=== PATIENT | male | born 1965 | race Caucasian/White ===

== ENCOUNTER 2020-11-23 12:20 | Inpatient (IN) | payer OTHER ==
[~2020-11-23] VITALS: Ht 172.7 cm; Wt 73.9 kg
[2020-11-23] MEDS ORDERED: IV NS 0.9% 1,000 ML BAG IV ONE (13:00)
[2020-11-23 13:25] LABS: BASOPHILS % (AUTO) 1.3 % (0.0-2.0); EOSINOPHILS % (AUTO) 0.3 % (0.0-6.0); HEMATOCRIT 22 % (39-51); HEMOGLOBIN 7.3 g/dL (13.5-17.5); LYMPHOCYTES # (AUTO) 0.2 K/uL (0.8-4.8); LYMPHOCYTES % (AUTO) 31.1 % (20.0-44.0); MEAN CORPUSCULAR HGB CONC 33 g/dl (31.0-36.0); MEAN CORPUSCULAR VOLUME 77 fL (80-96); MONOCYTES % (AUTO) 1.3 % (2.0-12.0); NEUTROPHILS # (AUTO) 0.4 K/uL (1.8-8.9); RED BLOOD CELL COUNT(AUTO) 2.86 MIL/uL (4.5-6.0)
[2020-11-23 13:28] LABS: WHITE BLOOD COUNT (AUTO) 0.6 K/uL (4.3-11.0)
[2020-11-23 13:29] LABS: ALANINE AMINOTRANSFERASE 30 U/L (12-78); ALBUMIN 1.5 g/dL (3.4-5.0); ALKALINE PHOSPHATASE 121 U/L (46-116); ASPARTATE AMINOTRANSFERASE 77 U/L (15-37); BILIRUBIN,DIRECT 2.8 mg/dL (0.0-0.2); CALCIUM, SERUM 7.4 mg/dL (8.5-10.1); CARBON DIOXIDE 23 mmol/L (21-32); CHLORIDE 97 mmol/L (98-107); CREATININE 3.5 mg/dL (0.6-1.3); PLATELET COUNT (AUTO) 23 K/uL (150-450); POTASSIUM 4.3 mmol/L (3.5-5.1); SODIUM SERUM 141 mmol/L (136-145); TOTAL PROTEIN, SERUM 6.5 g/dL (6.4-8.2)
[2020-11-23 13:30] LABS: GLUCOSE 543 mg/dL (74-106)
[2020-11-23 13:31] LABS: UREA NITROGEN, BLOOD 84 mg/dL (7-18)
--- NOTE | 2020-11-23 14:03 | NUR ---
URINE COLLECTED AND SENT TO LAB
[2020-11-23 14:07] LABS: BILIRUBIN,URINE SMALL (NEGATIVE); COLOR,URINE YELLOW (YELLOW); LEUKOCYTE ESTERASE ,URINE Negative (NEGATIVE); NITRITE, URINE Negative (NEGATIVE); PH,URINE 5.5 (5.0-8.0); PROTEIN,URINE 100 mg/dl (NEGATIVE); UGLUCOSE Negative (NEGATIVE)
[2020-11-23 14:09] LABS: BACTERIA,URINE Few /HPF (None Seen); SQUAMOUS EPITHELIAL CELL,UR Few /HPF (None Seen)
[2020-11-23] MEDS ORDERED: CEFTRIAXONE 1GM BAG (ER ONLY) 1 GM/50 ML PIGGYBACK IV ONE (14:30)
[2020-11-23] MEDS ORDERED: VANCOMYCIN HCL 1.25 GM in IV D5W 260 ML IV ONE (14:30)
[2020-11-23] MEDS ORDERED: INSULIN REGULAR, HUMAN 100 UNIT/ML 10 ML VIAL ONE (14:41)
[2020-11-23] MEDS ORDERED: INSULIN REGULAR, HUMAN 100 UNIT/ML 10 ML VIAL IV ONE (15:00)
[2020-11-23 15:22] LABS: LYMPHOCYTES % (MANUAL) 28 % (16-48); MONOCYTES % (MANUAL) 8 % (0-11.0); NEUTROPHILS % (MANUAL) 64 (42-76)
[2020-11-23] MEDS ORDERED: CEFTRIAXONE 1 G in IV D5W 50 ML IV ONE (15:30)
--- NOTE | 2020-11-23 15:34 | NUR ---
MOVE SHEET SUBMITTED AND CALLED FOR TELE BED.
--- NOTE | 2020-11-23 16:28 | NUR ---
SAVANNAH,SISTER CALLED FOR UPDATE,CALL TX TO ADMITTING TO UPDATE CONTACT INFO
--- NOTE | 2020-11-23 17:02 | NUR ---
SEEN BY DR TAVERAS,WANTS ANOTHE NS 1L GIVEN, DR AUGUSTIN INFORMED TO PUT THE ORDER
[2020-11-23] MEDS ORDERED: ZOLPIDEM TARTRATE 5 MG TABLET PO PRN (17:30)
[2020-11-23] MEDS ORDERED: MEROPENEM 500 MG in IV NS 0.9% 50 ML IV SCH (17:30)
[2020-11-23] MEDS ORDERED: MAG HYDROX/AL HYDROX/SIMETH 30 ML UDC PO PRN (17:30)
[2020-11-23] MEDS ORDERED: ACETAMINOPHEN 325 MG TABLET PO PRN (17:30)
[2020-11-23] MEDS ORDERED: IV NS 0.9% 500 ML BAG IV ONE (17:30)
[2020-11-23] MEDS ORDERED: Z GUARD REMEDY 2 OZ OINT TP PRN (17:30)
[2020-11-23] MEDS ORDERED: ONDANSETRON HCL/PF 4 MG/2 ML VIAL IVP PRN (17:30)
[2020-11-23] MEDS ORDERED: MAGNESIUM HYDROXIDE 30 ML UDC PO PRN (17:30)
--- NOTE | 2020-11-23 18:04 | NUR ---
COVID SWAB DONE AND SENT
[2020-11-23] MEDS ORDERED: DEXTROSE 50%-WATER 50 ML DISP.SYRIN IV PRN (19:30)
[2020-11-23] MEDS: IV NS 0.9% 1,000 ML IV PRN (20:05)
--- NOTE | 2020-11-23 20:06 | NUR ---
SPOKE TO DAUGHTER DUSTY INFORMED ONLY PEOPLE TO NOTIFY ARE DUSTY AND AUSTIN. UPDATED NUMBER FOR DUSTY
--- NOTE | 2020-11-23 20:10 | NUR ---
FIORELLA BED: 103
--- NOTE | 2020-11-23 22:15 | NUR ---
report given to KATJA Lewis for continuation of care. no belongings, pt transferred per acls protocol.
[2020-11-23 22:40] VITALS: BP 65/45
--- NOTE | 2020-11-23 22:40 | NUR ---
TELE-TD/DIESEL CRANE OPERATOR SHIRLENE [facility] ACNP NOTIFIED OF PT BP 65/45 NEW ORDERS RECIEVED AND CARRIED OUT. WILL CONTINUE TO MONITOR THE PT CLOESLY.
[2020-11-23 23:00] VITALS: BP 73/49
[2020-11-23] MEDS ORDERED: ACETAMINOPHEN 650 MG/SUPP.RECT RC PRN (23:00)
--- NOTE | 2020-11-23 23:12 | NUR ---
TELE-TD/CUSTOMER LEADER VELASQUEZ CATH PLACED VIA STERIAL PROCEDURE SCANT DARK BROWN URINE RETURNED. PT TOLERATED WELL WILL CONTINUE TO MONITOR.
[2020-11-23] MEDS ORDERED: IV NS 0.9% 500 ML IV STA (23:26)
[2020-11-23 23:37] VITALS: BP 62/45
--- NOTE | 2020-11-23 23:37 | NUR ---
TELE-TD/SENIOR SITE MANAGER BP 62/45 BOLUS CURRENTLY INFUSING WILL CONTINUE TO MONITOR CLOESLY.
--- NOTE | 2020-11-23 23:45 | NUR ---
2345 Inserted new IV access on LFA g20 with good blood return.
[2020-11-23] MEDS: BLOOD SUGAR DIAGNOSTIC 1 EACH STRIP IN SCH (23:49)
[2020-11-23] MEDS: INSULIN REGULAR, HUMAN 100 UNIT/ML 3 ML VIAL SQ PRN (23:54)
[2020-11-23] MEDS ORDERED: MEROPENEM 1 G VIAL IV ONE (23:56)
[2020-11-23] MEDS: MEROPENEM 1 G in IV NS 0.9% 100 ML IV SCH (23:57)
[2020-11-24] VITALS (84 sets, daily range): BP systolic 64–161; BP diastolic 40–106
--- NOTE | 2020-11-24 00:01 | NUR ---
TELE-TD/B2B SALES CONSULTANT BOLUS COMPLETE BP 67/40 SHIRLENE DURAN ACNP ORDERED TRANSFER TO ICU.
--- NOTE | 2020-11-24 00:10 | NUR ---
0010 report given to ICU charge nurse Monika for transfer of care with questions answered.
[2020-11-24] MEDS ORDERED: NOREPINEPHRINE 8MG/250ML RTU 250 ML IV ONE ×2 (00:19→21:19)
--- NOTE | 2020-11-24 00:20 | NUR ---
0020 transferred to ICU on ACLS protocol.
--- NOTE | 2020-11-24 00:21 | NUR ---
RN/ICU-RECEIVED PT. FROM TD BY BED PER ACLS PROTOCOL, ACCOMPANIED BY STAFF, PT. AROUSABLE, ORIENTED TO SELF, FOLLOWS SIMPLE COMMANDS, W/ GENERALIZED WEAKNESS. EKG ST W/ HR-121/MIN. BP-64/43. WILL START LEVOPHED DRIP TO KEEP SBP>80. BREATHING IS FAST,29/MIN. NOT IN ANY DISTRESS W/ O2 SUPPORT OF 6LSM, SATS.-97%. FEBRILE T-101.8/F CONTINUOUS COOLING MEASURES DONE.PT. IS A FULL CODE. ON CONTACT /[place] ISOLATION FOR COVID, PCR RESULT PENDING.
--- NOTE | 2020-11-24 00:25 | NUR ---
RN/ICU-PT. PT. RESTLESS AT TIMES ,THRASHING, ATTEMPTS TO PULL O2 SUPPORT, WHEN OFF RESTRAINTS, REMINDER GIVEN, BUT TO NO AVAIL, W/ DUSTIN. SOFT WRIST RESTRAINTS ON PER PROTOCOL.
[2020-11-24] MEDS: NOREPINEPHRINE 8 MG in IV NS 0.9% 242 ML IV PRN ×4 (00:31→21:32)
--- NOTE | 2020-11-24 02:17 | NUR ---
RN/ICU- BP-105/73, HR-135, LATEST TEMPT 100.9/F, WILL CONTINUE TO TITRATE LEVOPHED TO KEEP SBP>90, LATEST BP PARAMETERS ORDERED BY Yeison FINNEY.
[2020-11-24 05:01] LABS: BASOPHILS % (AUTO) 0.3 % (0.0-2.0); EOSINOPHILS % (AUTO) 0.8 % (0.0-6.0); LYMPHOCYTES # (AUTO) 0.2 K/uL (0.8-4.8); LYMPHOCYTES % (AUTO) 23.3 % (20.0-44.0); MEAN CORPUSCULAR HGB CONC 34 g/dl (31.0-36.0); MEAN CORPUSCULAR VOLUME 76 fL (80-96); MONOCYTES % (AUTO) 1.2 % (2.0-12.0); NEUTROPHILS # (AUTO) 0.6 K/uL (1.8-8.9); NEUTROPHILS % (AUTO) 74.4 % (43.0-81.0); RED BLOOD CELL COUNT(AUTO) 2.52 MIL/uL (4.5-6.0)
[2020-11-24 05:14] LABS: THYROID STIMULATING HORMONE 0.564 uIU/mL (0.358-3.74)
[2020-11-24 05:16] LABS: CALCIUM, SERUM 6.4 mg/dL (8.5-10.1); CREATININE 4.9 mg/dL (0.6-1.3); MAGNESIUM 2.8 mg/dL (1.8-2.4); POTASSIUM 4.5 mmol/L (3.5-5.1)
[2020-11-24] MEDS: BLOOD SUGAR DIAGNOSTIC 1 EACH STRIP IN SCH ×4 (05:48→23:12)
[2020-11-24] MEDS: INSULIN REGULAR, HUMAN 100 UNIT/ML 3 ML VIAL SQ PRN ×4 (05:49→23:12)
[2020-11-24 05:56] LABS: PHOSPHORUS 10.2 mg/dL (2.5-4.9)
[2020-11-24 06:12] LABS: HEMATOCRIT 19 % (39-51); HEMOGLOBIN 6.5 g/dL (13.5-17.5); PLATELET COUNT (AUTO) 13 K/uL (150-450); WHITE BLOOD COUNT (AUTO) 0.8 K/uL (4.3-11.0)
[2020-11-24] MEDS ORDERED: PANTOPRAZOLE 40 MG TABLET.DR PO SCH (07:30)
--- NOTE | 2020-11-24 07:30 | NUR ---
ICU/RN PT IS ON SIMPLE FACE MASK,SAT O2-99%.AWAKE ,CONFUSED AND VERY WEAK .ON LEVOPHED DRIP.NPO.F/C IN PLACE DRAINING WITH MINIMAL AMOUNT OF DARK PRANAV URINE.AFEBRILE,NO PAIN REPORTED AT THIS TIME.FROM HOME,POST FALL,BRUISES ALL OVER THE BODY NOTED.LABS REVIEW. NOTIFIED.1 UNIT PRBC ORDERED.FAMILY NOTIFIED.CONSENT SIGH.REPOSITION FOR COMFORT .
[2020-11-24] MEDS: MEROPENEM 1 G in IV NS 0.9% 100 ML IV SCH (09:31)
[2020-11-24] MEDS: PANTOPRAZOLE 40 MG VIAL IV SCH (09:32)
--- NOTE | 2020-11-24 10:40 | NUR ---
ICU/RN. RIGHT FEMORAL HD CATHETER INSERTED BY DANIEL BLUM ORDERED.PT TOLERATED PROCEDURE WELL NO S/S OF BLEEDING NOTED.
[2020-11-24] MEDS ORDERED: ACETAMINOPHEN 325 MG TABLET PO ONE (11:30)
[2020-11-24] MEDS ORDERED: diphenhydrAMINE HCL 50 MG/ML VIAL IV ONE (11:30)
[2020-11-24 12:07] LABS: IRON, SERUM 34 ug/dl (50-175); TOTAL IRON BINDING CAPACITY 86 ug/dl (250-450)
[2020-11-24] MEDS ORDERED: CEFEPIME 1 GM VIAL IM SCH (12:30)
[2020-11-24 12:35] LABS: D-DIMER 15.09 mg/L(FEU (0.17-0.50)
[2020-11-24 13:12] LABS: FERRITIN 4803 ng/mL (8-388)
[2020-11-24 13:21] LABS: BAND % (MANUAL) 12 % (0.0-5.0); LYMPHOCYTES % (MANUAL) 24 % (16-48); MONOCYTES % (MANUAL) 2 % (0-11.0); NEUTROPHILS % (MANUAL) 62 (42-76)
[2020-11-24 13:22] LABS: PROSTATE SPECIFIC ANTIGEN SCR 2.86 ng/mL (0.00-4.00)
--- NOTE | 2020-11-24 14:10 | NUR ---
PATIENT RECEIVING DIALYSIS, TECH TO RETURN FOR LIVER ULTRASOUND
[2020-11-24] MEDS: TBO-FILGRASTIM 480 MCG/0.8 ML ML SQ SCH (14:55)
[2020-11-24] MEDS: VANCOMYCIN 0.75 GM in IV D5W 250 ML IV SCH (14:56)
--- NOTE | 2020-11-24 17:10 | NUR ---
ICU/RN FIRST HD DONE ORDERED .NO FLUIDS REMOVED.1 UNIT PRBC GIVEN WITH HD ORDERED.NO S/S OF TRANSFUSION REACTION NOTED.DUE MEDS ARE GIVEN ORDERED.CONTINUE MONITORING. LEFT UPPER ARM PICC LINE INSERTED ORDERED.
--- NOTE | 2020-11-24 19:29 | NUR ---
RN NOTES CALLED LAB, SPOKE WITH MAT TO F/U REGARDING THE PLATELET, WAS ADVISED STILL WAITING FROM [place] FOR THE BAG. WILL PROVIDE UPDATE ONCE IT AVAILABLE FOR CAR DUMPER. MASON LINER MADE AWARE.
[2020-11-24] MEDS: IV NS 0.9% 1,000 ML IV PRN (19:30)
--- NOTE | 2020-11-24 19:30 | NUR ---
RN OPENING NOTES: RECEIVED PT A/OX2-3 IN BED RESTING COMFORTABLY. PATIENT IN NO S/SX OF ACUTE DISTRESS AT THIS TIME. NO SOB NOTED. PATIENT'S BREATHING IS EVEN AND UNLABORED. PATIENT IS ON 6L OF OXYGEN VIA NC; TOLERATING WELL. PATIENT ON TELE MONITORING READING SINUS TACHY HR IS @103 BPM AT THE TIME OF RECEIVED. PATIENT CURRENTLY ON NPO EXCEPT MEDS. NOTED IV SITE ON THE FOLLOWING: R AC#20 , L AC#20 AND L UA PICC LINE ; ALL PATENT, INTACT AND FLUSHING WELL; NO S/S OF INFECTION OR INFILTRATION. PT ALSO HAS R FEMORAL HD CATH WITH PICC TAIL SECURED AND INTACT NO SIGNS OF INFECTION. IV FLUIDS RUNNING ORDERED. HAS RUNNING LEVO RECEIVED @0.1MCG/KG/MIN MONITORED AND TITRATED PER PROTOCOL. VELASQUEZ CATH IN PLACE, NO URINE OUTPUT NOTED AT THE TIME OF RECEIVED. SAFETY MEASURES HAVE BEEN PROVIDED AND IMPLEMENTED. PATIENT BED ALARM IS ON. HEAD OF BED ELEVATED. BED IS LOCKED, IN LOWEST POSITION AND SIDE RAILS UP. CALL LIGHT WITHIN REACH OF THE PATIENT. APPLICABLE ISOLATION PRECAUTIONS IN PLACE. WILL CONTINUE TO MONITOR AND REASSESS FOR ANY CHANGES AND WILL CARRY OUT ANY ONGOING AND ACTIVE MD ORDER. Addendum: 11/25/20 at 0024 by BRAYDEN DE LEON RN CORRECTION PT IS ON 3L OF 02 VIA ND
[2020-11-24] MEDS: MEROPENEM 500 MG in IV NS 0.9% 50 ML IV SCH (20:42)
--- NOTE | 2020-11-24 20:45 | NUR ---
RN NOTES STARTED 1 BAG OF PLATELET ORDERED. INITIAL VITAL SIGNS TAKEN AND NOTED TO BE WNL. INFUSED PER PROTOCOL. WILL CONTINUE TO MONITOR AND ASSESS FOR ANY TRANSFUSION REACTION AND ADDRESS ACCORDINGLY. CARGO TANK MECHANIC WELL AWARE.
--- NOTE | 2020-11-24 21:20 | NUR ---
RN NOTES RECEIVED CALL FROM FAMILY; MARIO [phone]) PROVIDED GENERAL UPDATES REGARDING THE PATIENT. SHE ALSO REQUESTED TO KEEP SIGNIFICANT UPDATES TO PT'S DAUGHTER DUSTY MARIE ([phone]) RN ACKNOWLEDGED.
--- NOTE | 2020-11-24 21:46 | NUR ---
RN NOTES ENDED PLATELE TRANSFUSION @2145, VITAL SIGNS REMAINED WNL, NO TRANSFUSION REACTION NOTED. WILL CONTINUE TO MONITOR AND ASSESS FOR ANY RANSFUSION REACTION POST PROCEDURE. COMPUTER NETWORKER MADE AWARE.
[2020-11-25] VITALS (102 sets, daily range): BP systolic 66–146; BP diastolic 28–85
[2020-11-25] MEDS: IV NS 0.9% 1,000 ML IV PRN (05:00)
[2020-11-25] MEDS: INSULIN REGULAR, HUMAN 100 UNIT/ML 3 ML VIAL SQ PRN ×4 (05:11→23:21)
[2020-11-25] MEDS: BLOOD SUGAR DIAGNOSTIC 1 EACH STRIP IN SCH ×4 (05:11→23:20)
[2020-11-25 05:20] LABS: LYMPHOCYTES # (AUTO) 0.2 K/uL (0.8-4.8); LYMPHOCYTES % (AUTO) 24.1 % (20.0-44.0); MEAN CORPUSCULAR HGB CONC 34 g/dl (31.0-36.0); MEAN CORPUSCULAR VOLUME 78 fL (80-96); MONOCYTES # (AUTO) 0.3 K/uL (0.1-1.30); MONOCYTES % (AUTO) 41.4 % (2.0-12.0); NEUTROPHILS # (AUTO) 0.2 K/uL (1.8-8.9); NEUTROPHILS % (AUTO) 34.5 % (43.0-81.0)
[2020-11-25 05:46] LABS: BILIRUBIN,TOTAL 2.9 mg/dL (0.2-1.0); PHOSPHORUS 7.3 mg/dL (2.5-4.9); POTASSIUM 3.5 mmol/L (3.5-5.1); TOTAL PROTEIN, SERUM 4.6 g/dL (6.4-8.2)
[2020-11-25 06:19] LABS: HEMATOCRIT 20 % (39-51); HEMOGLOBIN 6.9 g/dL (13.5-17.5); WHITE BLOOD COUNT (AUTO) 0.7 K/uL (4.3-11.0)
[2020-11-25 06:20] LABS: PLATELET COUNT (AUTO) 14 K/uL (150-450)
--- NOTE | 2020-11-25 06:20 | NUR ---
RN NOTES CRITICAL LAB ENDORSED BY SHANNON FROM LAB, WBC: 0.7 , HGB: 6.9 & PLATELET: 14. CALCIUM 4.5 AND ALBUMIN 1) NOTIFIED SHARMAINE NUNEZ (SHIRLENE,RAILWAY SIGNALLING ENGINEER) REGARDING CRITICAL LAB ( WBC: 0.7 , HGB: 6.9 & PLATELET: 14. CALCIUM 4.5 AND ALBUMIN 1). ORDER SECURED FOR 1 PRBC ONLY PT WILL HAVE HD TODAY. NUCLEAR EQUIPMENT SALES ENGINEER MADE AWARE.
--- NOTE | 2020-11-25 06:56 | NUR ---
RN CLOSING NOTE: PATIENT REMAINS IN ROOM IN NO SIGNS OF RESPIRATORY DISTRESS, PATIENT STILL ON 3L OF 02 VIA NC ;TOLERATING WELL SATURATING @ >95% SP02. SAFETY MEASURES IMPLEMENTED, BED IN LOWEST POSITION, LOCKED, SIDE RAILS UP, CALL LIGHT WITHIN REACH. ALL NEEDS AND ORDERS ADDRESSED DURING THE SHIFT. IV ACCESS MAINTAINED INTACT, SECURED AND FLUSHING WELL. ALL DUE MEDS GIVEN ORDERED & SCHEDULED ; PATIENT TOLERATED WELL. STILL WITH ONGOING DRIP OF LEVO @0.1MCG/KG/MIN ; MONITORED AND TITRATED PER PROTOCOL. PATIENT KEPT CLEAN AND COMFORTABLE WITHIN THE SHIFT. PATIENT ENDORSED TO INCOMING SHIFT RN WITH STABLE VITAL SIGN AND FOR CONTINUITY OF CARE.
[2020-11-25 07:06] LABS: IMMUNOGLOBULIN A, SERUM 587 mg/dL (90-386); IMMUNOGLOBULIN G, SERUM 871 mg/dL (603-1613); IMMUNOGLOBULIN M, SERUM 23 mg/dL (20-172)
--- NOTE | 2020-11-25 07:20 | NUR ---
ICU/RN PT IS ON 3L N/C SAT O2-98-99%.AFEBRILE.ON LEVOPHED DRIP.LEFT UPPER ARM PICC LINE .PT IS AWAKE,ALERT.VERY WEAK .NPO.IV INFUSING ORDERED.F/C IN PLACE NO URINE OUTPUT. RIGHT FEMORAL HD CATH .GENERALIZED EDEMA PRESENT .AFEBRILE NO PAIN REPORTED AT THIS TIME .LABS REVIEW. NOTIFIED.1 UNIT PRBC ORDERED.
[2020-11-25 07:37] LABS: LYMPHOCYTES % (MANUAL) 28 % (16-48); MONOCYTES % (MANUAL) 1 % (0-11.0); NEUTROPHILS % (MANUAL) 71 (42-76)
[2020-11-25] MEDS: PANTOPRAZOLE 40 MG VIAL IV SCH (08:04)
[2020-11-25] MEDS: MEROPENEM 500 MG in IV NS 0.9% 50 ML IV SCH ×2 (08:05→21:02)
[2020-11-25 08:07] LABS: *ANA ANTI-CENTROMERE B AB <0.2 AI (0.0-0.9); *ANA ANTI-DNA(DS) AB, QN <1 IU/mL (0-9); *ANA ANTI-JO-1 <0.2 AI (0.0-0.9); *ANA ANTICHROMATIN ANTIBODY <0.2 AI (0.0-0.9); *ANA RNP ANTIBODIES <0.2 AI (0.0-0.9); *ANA SJOGREN'S ANTI-SS-A <0.2 AI (0.0-0.9); *ANA SJOGREN'S ANTI-SS-B <0.2 AI (0.0-0.9); *ANAANTI-SCLERODERMA-70 AB <0.2 AI (0.0-0.9); *ANASMITH AB <0.2 AI (0.0-0.9)
--- NOTE | 2020-11-25 10:24 | NUR ---
ICU/RN H/H -6.9/20.1 UNIT PRBC GIVEN WITH HD ORDERED.PT TOLERATED WELL NO S/S OF REACTIONS NOTED.
[2020-11-25] MEDS: NOREPINEPHRINE 8 MG in IV NS 0.9% 242 ML IV PRN (11:31)
[2020-11-25] MEDS: VANCOMYCIN 0.75 GM in IV D5W 250 ML IV SCH (12:48)
[2020-11-25] MEDS ORDERED: PHYTONADIONE INJ 10 MG/1 ML AMPUL SQ ONE (13:00)
[2020-11-25 14:31] LABS: D-DIMER 19.07 mg/L(FEU (0.17-0.50)
[2020-11-25] MEDS ORDERED: CT SWABBABLE VALVE TRANS SET 1 EA INFUS.SET MC ONE (14:58)
[2020-11-25] MEDS ORDERED: IOHEXOL-300 100 ML VIAL IV ONE (14:58)
[2020-11-25] MEDS ORDERED: IV NS 0.9% 250 ML IV ONE (14:58)
[2020-11-25] MEDS: TBO-FILGRASTIM 480 MCG/0.8 ML ML SQ SCH (15:33)
[2020-11-25] MEDS: HYDROCODONE/APAP 5/325MG TABLET PO PRN (17:53)
--- NOTE | 2020-11-25 18:00 | NUR ---
ICU/RN PM CARE PROVIDED.PT EATS 25%,FROM HIS MEAL TRAY.BS-34O.C/O OF BACK PAIN ,NORCO 1 TAB PO GIVEN.CONTINUE MONITORING.
--- NOTE | 2020-11-25 19:30 | NUR ---
RN OPENING NOTES: RECEIVED PT A/OX2-3 IN BED IN NO S/SX OF ACUTE DISTRESS AT THIS TIME. NO SOB NOTED. PATIENT'S BREATHING IS EVEN AND UNLABORED. PATIENT IS ON 2L OF OXYGEN VIA NC; TOLERATING WELL; 02 SAT IS AT 96%. PATIENT ON TELE MONITORING READING SINUS TACHY AT THE TIME OF RECEIVED. PATIENT CURRENTLY ON RENAL DIABETIC DIET. NOTED IV SITE ON THE FOLLOWING: R AC#20 , L AC#20 AND L UA PICC LINE ; ALL PATENT, INTACT AND FLUSHING WELL; NO S/S OF INFECTION OR INFILTRATION. PT ALSO HAS R FEMORAL HD CATH WITH PICC TAIL SECURED AND INTACT NO SIGNS OF INFECTION. IV FLUIDS RUNNING ORDERED. HAS RUNNING LEVO RECEIVED @0.04 MCG/KG/MIN WILL MONITOR AND TITRATE PER PROTOCOL. VELASQUEZ CATH IN PLACE, NO URINE OUTPUT NOTED AT THE TIME OF RECEIVED. SAFETY MEASURES HAVE BEEN PROVIDED AND IMPLEMENTED. PATIENT BED ALARM IS ON. HEAD OF BED ELEVATED. BED IS LOCKED, IN LOWEST POSITION AND SIDE RAILS UP. CALL LIGHT WITHIN REACH OF THE PATIENT. APPLICABLE ISOLATION PRECAUTIONS IN PLACE. WILL CONTINUE TO MONITOR AND REASSESS FOR ANY CHANGES AND WILL CARRY OUT ANY ONGOING AND ACTIVE MD ORDER.
[2020-11-26] VITALS (95 sets, daily range): BP systolic 76–148; BP diastolic 38–126
[2020-11-26] MEDS: IV NS 0.9% 1,000 ML IV PRN ×2 (00:40→14:38)
--- NOTE | 2020-11-26 04:00 | NUR ---
RN NOTES NO NOTED CHANGES IN PATIENT CONDITION AT THIS TIME; PATIENT VITALS STABLE, NO SIGNS OF ACUTE RESPIRATORY DISTRESS. AM PATIENT CARE RENDERED. FOOD SAFETY TECHNICIAN MADE AWARE. WILL CONTINUE TO MONITOR AND REASSESS FOR ANY CHANGES THROUGHOUT THE SHIFT.
[2020-11-26] MEDS: INSULIN REGULAR, HUMAN 100 UNIT/ML 3 ML VIAL SQ PRN ×4 (05:34→23:36)
[2020-11-26] MEDS: BLOOD SUGAR DIAGNOSTIC 1 EACH STRIP IN SCH ×4 (05:34→23:35)
[2020-11-26 06:10] LABS: EOSINOPHILS % (AUTO) 0.6 % (0.0-6.0); HEMATOCRIT 22 % (39-51); HEMOGLOBIN 7.5 g/dL (13.5-17.5); LYMPHOCYTES # (AUTO) 0.2 K/uL (0.8-4.8); LYMPHOCYTES % (AUTO) 21.4 % (20.0-44.0); MEAN CORPUSCULAR HGB CONC 35 g/dl (31.0-36.0); MEAN CORPUSCULAR VOLUME 79 fL (80-96); MONOCYTES # (AUTO) 0.4 K/uL (0.1-1.30); MONOCYTES % (AUTO) 40.9 % (2.0-12.0); NEUTROPHILS # (AUTO) 0.3 K/uL (1.8-8.9); NEUTROPHILS % (AUTO) 37.1 % (43.0-81.0); RED BLOOD CELL COUNT(AUTO) 2.74 MIL/uL (4.5-6.0)
--- NOTE | 2020-11-26 06:20 | NUR ---
RN NOTES NOTED EPISODE OF MUSCLE TWITCHING ON PT'S R ARM ( LASTED FOR LESS THAN 10SECONDS) NO PAIN PER PATIENT. V/S WNL. INFORMED ONCJEET NUNEZ ( RALPH GARBER) ;MILITARY ADMINISTRATIVE TECHNICIAN MADE AWARE. WILL ENDORSE TO AM SHIFT ABOUT THIS INCIDENT.
--- NOTE | 2020-11-26 06:52 | NUR ---
RN CLOSING NOTE: PATIENT REMAINS IN ROOM IN NO SIGNS OF RESPIRATORY DISTRESS, PATIENT STILL ON 2L OF 02 VIA NC ;TOLERATING WELL SATURATING @ >95% SP02. SAFETY MEASURES IMPLEMENTED, BED IN LOWEST POSITION, LOCKED, SIDE RAILS UP, CALL LIGHT WITHIN REACH. ALL NEEDS AND ORDERS ADDRESSED DURING THE SHIFT. IV ACCESS MAINTAINED INTACT, SECURED AND FLUSHING WELL. ALL DUE MEDS GIVEN ORDERED & SCHEDULED ; PATIENT TOLERATED WELL. STILL WITH ONGOING DRIP OF LEVO @0.04MCG/KG/MIN ; MONITORED AND TITRATED PER PROTOCOL. PATIENT KEPT CLEAN AND COMFORTABLE WITHIN THE SHIFT. WILL INFORM AM SHIFT RN TO FOLLOW UP WITH DR. YAJAIRA Mendoza, FOR THE PLAN AND ORDER FOR ANOTHER HD THIS MORNING (WAS ENDORSED FROM THE PREVIOUS AM SHIFT). PATIENT ENDORSED TO INCOMING SHIFT RN WITH STABLE VITAL SIGN AND FOR CONTINUITY OF CARE.
--- NOTE | 2020-11-26 07:10 | NUR ---
PHARMACY TECHNICIAN INFUSION NOTES RECEIVED PT A/O X3-4. ON 2L OF O2 VIA NC. NO SOB OR ANY S/SX OF ACUTE DISTRESS AT THIS TIME. TELE MONITOR READING SR. ON RENAL/DIABETIC DIET. IV SITE ON R AC #20, L AC #20 AND SOPHIA PICC LINE INTACT, PATENT AND FLUSHING WELL. R FEMORAL HD CATH IN PLACE. LEVO @0.04 MCG/KG/MIN. VELASQUEZ CATH IN PLACE. SAFETY MEASURES IMPLEMENTED. BED ALARM IS ON. HOB ELEVATED. BED LOCKED AND IN LOWEST POSITION AND SIDE RAILS UP. CALL LIGHT WITHIN REACH. ISOLATION PRECAUTIONS IN PLACE. WILL CONTINUE TO MONITOR.
[2020-11-26 07:11] LABS: PLATELET COUNT (AUTO) 7 K/uL (150-450); WHITE BLOOD COUNT (AUTO) 0.9 K/uL (4.3-11.0)
[2020-11-26 08:12] LABS: D-DIMER 19.47 mg/L(FEU (0.17-0.50)
[2020-11-26] MEDS: MEROPENEM 500 MG in IV NS 0.9% 50 ML IV SCH (08:48)
[2020-11-26] MEDS: PANTOPRAZOLE 40 MG VIAL IV SCH (08:49)
[2020-11-26 09:12] LABS: BILIRUBIN,TOTAL 2.6 mg/dL (0.2-1.0); CREATININE 3.5 mg/dL (0.6-1.3); MAGNESIUM 2.2 mg/dL (1.8-2.4); PHOSPHORUS 7.9 mg/dL (2.5-4.9); POTASSIUM 4.2 mmol/L (3.5-5.1); TOTAL PROTEIN, SERUM 4.8 g/dL (6.4-8.2)
[2020-11-26 09:18] LABS: CALCIUM, SERUM 5.1 mg/dL (8.5-10.1)
--- NOTE | 2020-11-26 13:48 | NUR ---
RN NOTES TRANSFUSION OF 1 BAG PLATELET GIVEN. VERIFIED BY CHARGE NURSE. ELECTRONIC SCANNING UNAVAILABLE. TRANSFUSION FORM PLACED IN CHART. VS STABLE.
--- NOTE | 2020-11-26 14:00 | NUR ---
ICU NOTES DR. VALIENTE HD ORDER PLACED WITH THE HELP OF DIALYSIS NURSE DILLON COLES RN.
--- NOTE | 2020-11-26 14:18 | NUR ---
RN NOTES 1 BAG PLATELETS TRANSFUSED. NO ADVERSE EFFECTS NOTED. VS STABLE.
[2020-11-26] MEDS: TBO-FILGRASTIM 480 MCG/0.8 ML ML SQ SCH (14:45)
[2020-11-26] MEDS: VANCOMYCIN 0.75 GM in IV D5W 250 ML IV SCH (14:56)
[2020-11-26] MEDS: NOREPINEPHRINE 8 MG in IV NS 0.9% 242 ML IV PRN (15:01)
--- NOTE | 2020-11-26 16:00 | NUR ---
RN NOTES HD DONE. VS STABLE. 500ML OUTPUT.
--- NOTE | 2020-11-26 18:52 | NUR ---
RESEARCH CLERK NOTES PT RESTING IN BED. ON 2L OF O2 VIA NC. NO SOB OR ANY S/SX OF ACUTE DISTRESS AT THIS TIME. LEVO @0.04 MCG/KG/MIN. 500ML OUTPUT FROM HD. ALL DUE MEDS GIVEN. NEEDS ATTENDED. KEPT CLEAN AND COMFORTABLE. SAFETY MEASURES IMPLEMENTED. WILL ENDORSE TO NIGHT RN FOR OLAF.
[2020-11-26] MEDS ORDERED: CEFTRIAXONE 1GM BAG (ER ONLY) 1 GM/50 ML PIGGYBACK IV SCH (20:30)
[2020-11-26] MEDS ORDERED: METRONIDAZOLE 500MG/ NS 100ML 100 ML IV ONE (20:49)
[2020-11-26] MEDS ORDERED: CEFTRIAXONE 1 G VIAL ONE ×2 (20:50→21:23)
[2020-11-26] MEDS: METRONIDAZOLE 500MG/ NS 100ML 500 MG in PREMIX 1 EA IV SCH (20:55)
[2020-11-26] MEDS: CEFTRIAXONE 2 G in IV NS 0.9% 100 ML IV SCH (22:14)
[2020-11-27] VITALS (84 sets, daily range): BP systolic 85–160; BP diastolic 38–88
[2020-11-27] MEDS: INSULIN REGULAR, HUMAN 100 UNIT/ML 3 ML VIAL SQ PRN ×4 (05:11→23:15)
[2020-11-27] MEDS: BLOOD SUGAR DIAGNOSTIC 1 EACH STRIP IN SCH ×4 (05:12→23:12)
[2020-11-27] MEDS: IV NS 0.9% 1,000 ML IV PRN ×2 (05:17→18:14)
[2020-11-27 05:18] LABS: BASOPHILS % (AUTO) 0.3 % (0.0-2.0); EOSINOPHILS % (AUTO) 0.2 % (0.0-6.0); HEMATOCRIT 22 % (39-51); HEMOGLOBIN 7.4 g/dL (13.5-17.5); LYMPHOCYTES # (AUTO) 0.2 K/uL (0.8-4.8); LYMPHOCYTES % (AUTO) 15.8 % (20.0-44.0); MEAN CORPUSCULAR HGB CONC 34 g/dl (31.0-36.0); MEAN CORPUSCULAR VOLUME 79 fL (80-96); MONOCYTES % (AUTO) 0.5 % (2.0-12.0); NEUTROPHILS # (AUTO) 1.1 K/uL (1.8-8.9); NEUTROPHILS % (AUTO) 83.2 % (43.0-81.0); RED BLOOD CELL COUNT(AUTO) 2.72 MIL/uL (4.5-6.0)
[2020-11-27] MEDS ORDERED: METRONIDAZOLE 500MG/ NS 100ML 100 ML IV ONE (05:31)
[2020-11-27 05:39] LABS: BILIRUBIN,TOTAL 2.3 mg/dL (0.2-1.0); CALCIUM, SERUM 6.4 mg/dL (8.5-10.1); CREATININE 3.7 mg/dL (0.6-1.3); PHOSPHORUS 6.7 mg/dL (2.5-4.9); POTASSIUM 4.5 mmol/L (3.5-5.1); TOTAL PROTEIN, SERUM 5.2 g/dL (6.4-8.2)
[2020-11-27 05:47] LABS: ALBUMIN 1.2 g/dL (3.4-5.0)
[2020-11-27 06:03] LABS: D-DIMER 17.95 mg/L(FEU (0.17-0.50)
[2020-11-27 06:05] LABS: WHITE BLOOD COUNT (AUTO) 1.3 K/uL (4.3-11.0)
[2020-11-27 06:06] LABS: PLATELET COUNT (AUTO) 11 K/uL (150-450)
[2020-11-27] MEDS: METRONIDAZOLE 500MG/ NS 100ML 500 MG in PREMIX 1 EA IV SCH ×3 (06:29→21:11)
[2020-11-27 06:36] LABS: BAND % (MANUAL) 4 % (0.0-5.0); LYMPHOCYTES % (MANUAL) 12 % (16-48); NEUTROPHILS % (MANUAL) 84 (42-76)
--- NOTE | 2020-11-27 07:07 | NUR ---
RN CLOSING NOTE PT REMAINS IN STABLE CONDITION AT THIS TIME, LEVOPHED RUNNING AT 0.0.3 MCG/KG/MIN. PARTIAL BED BATH DONE, AT END OF SHIFT. ALL NEEDS ATTENDED. PT HAS IVF RUNNING ORDERED. SAFETY MEASURES IN PLACE. HOB ELEVATED SIDE RAILS UP X3, BED LOCKED IN LOWEST POSITION WITH BED ALARM ON. Addendum: 11/27/20 at 0715 by PENNY GONZALES RN WILL ENDORSE TO AM SHIFT FOR CONTINUATION OF CARE
--- NOTE | 2020-11-27 07:25 | NUR ---
AGRICULTURAL ADVISER NOTES RECEIVED PT A/O X3-4. ON 2L OF O2 VIA NC. NO SOB OR ANY S/SX OF ACUTE DISTRESS AT THIS TIME. TELE MONITOR READING SR. ON RENAL/DIABETIC DIET. IV SITE ON R AC #20, L AC #20 AND SOPHIA PICC LINE INTACT, PATENT AND FLUSHING WELL. R FEMORAL HD CATH IN PLACE. LEVO @0.03 MCG/KG/MIN. VELASQUEZ CATH IN PLACE. SAFETY MEASURES IMPLEMENTED. BED ALARM IS ON. HOB ELEVATED. BED LOCKED AND IN LOWEST POSITION AND SIDE RAILS UP. CALL LIGHT WITHIN REACH. ISOLATION PRECAUTIONS IN PLACE. WILL CONTINUE TO MONITOR.
[2020-11-27] MEDS: CEFTRIAXONE 2 G in IV NS 0.9% 100 ML IV SCH (10:14)
[2020-11-27] MEDS: PANTOPRAZOLE 40 MG TABLET.DR PO SCH (10:14)
[2020-11-27] MEDS: ALBUTEROL HALF STRENGTH 1.25 MG/3 ML VIAL.NEB NEB SCH ×4 (10:59→23:30)
[2020-11-27] MEDS: IPRATROPIUM NEB FS 0.5 MG/2.5 ML AMPUL.NEB NEB SCH ×4 (10:59→23:30)
[2020-11-27 11:07] LABS: *SPE A/G RATIO 0.4 (0.7-1.7); *SPE ALPHA-1-GLOBULIN 0.5 g/dL (0.0-0.4); *SPE BETA GLOBULIN 1.2 g/dL (0.7-1.3); *SPE M-SPIKE Not Observed g/dL (Not Observed)
[2020-11-27] MEDS: TBO-FILGRASTIM 480 MCG/0.8 ML ML SQ SCH (15:03)
--- NOTE | 2020-11-27 19:50 | NUR ---
RN OPENING NOTE RECD PT IN BED, PT IS ON ROOM AIR NO DISTRESS NOTED. O2 SAT 100% PT NSR 90 ON TELE. IV SITE INTACT, LFA AND SOPHIA PICC FLUSHED, NO BLOOD RETURN. PT ABLE TO TURN REPOSITION SELF. PT HAS VELASQUEZ CATH, INCREASING OUTPUT. IVF RUNNING ORDERED. PT DENIES PAIN. ALL NEEDS ATTENDED. SAFETY MEASURES IN PLACE. HOB ELEVATED. SIDE RAILS UP X2, BED LOCKED IN LOWEST POSITION WITH BED ALARM ON. WILL CONT TO MONITOR CLOSELY THROUGHOUT SHIFT Addendum: 11/27/20 at 2144 by PENNY GONZALES RN blood return noted
[2020-11-28] VITALS (26 sets, daily range): BP systolic 88–121; BP diastolic 52–79
--- NOTE | 2020-11-28 00:45 | NUR ---
RN NOTE PT RESTING WELL, ALL NEEDS ATTENDED AT THIS TIME. PT DENIES PAIN. REQUESTS TO SLEEP AT THIS TIME.
[2020-11-28] MEDS: IPRATROPIUM NEB FS 0.5 MG/2.5 ML AMPUL.NEB NEB SCH ×6 (03:30→23:45)
[2020-11-28] MEDS: ALBUTEROL HALF STRENGTH 1.25 MG/3 ML VIAL.NEB NEB SCH ×6 (03:30→23:45)
[2020-11-28] MEDS: METRONIDAZOLE 500MG/ NS 100ML 500 MG in PREMIX 1 EA IV SCH ×3 (04:19→21:32)
[2020-11-28] MEDS: IV NS 0.9% 1,000 ML IV PRN ×2 (04:19→18:18)
[2020-11-28 04:40] LABS: BILIRUBIN,TOTAL 1.4 mg/dL (0.2-1.0); CALCIUM, SERUM 6.2 mg/dL (8.5-10.1); CREATININE 4.3 mg/dL (0.6-1.3); PHOSPHORUS 7.4 mg/dL (2.5-4.9); POTASSIUM 3.9 mmol/L (3.5-5.1); TOTAL PROTEIN, SERUM 5.1 g/dL (6.4-8.2)
[2020-11-28 04:47] LABS: BASOPHILS % (AUTO) 0.5 % (0.0-2.0); EOSINOPHILS % (AUTO) 0.3 % (0.0-6.0); LYMPHOCYTES # (AUTO) 0.3 K/uL (0.8-4.8); LYMPHOCYTES % (AUTO) 17.8 % (20.0-44.0); MEAN CORPUSCULAR HGB CONC 35 g/dl (31.0-36.0); MEAN CORPUSCULAR VOLUME 79 fL (80-96); MONOCYTES % (AUTO) 0.5 % (2.0-12.0); NEUTROPHILS # (AUTO) 1.3 K/uL (1.8-8.9); NEUTROPHILS % (AUTO) 80.9 % (43.0-81.0); RED BLOOD CELL COUNT(AUTO) 2.39 MIL/uL (4.5-6.0)
[2020-11-28] MEDS: BLOOD SUGAR DIAGNOSTIC 1 EACH STRIP IN SCH ×4 (05:01→23:57)
[2020-11-28 05:09] LABS: ALBUMIN 1.2 g/dL (3.4-5.0)
[2020-11-28] MEDS: INSULIN REGULAR, HUMAN 100 UNIT/ML 3 ML VIAL SQ PRN ×3 (05:11→18:14)
[2020-11-28 05:34] LABS: D-DIMER 15.52 mg/L(FEU (0.17-0.50)
[2020-11-28 05:45] LABS: WHITE BLOOD COUNT (AUTO) 1.6 K/uL (4.3-11.0)
[2020-11-28 05:46] LABS: HEMATOCRIT 19 % (39-51); HEMOGLOBIN 6.5 g/dL (13.5-17.5)
[2020-11-28 05:47] LABS: PLATELET COUNT (AUTO) 11 K/uL (150-450)
--- NOTE | 2020-11-28 06:57 | NUR ---
RN CLOSING NOTE PT AT THIS TIME REMAINS ON 3L OF NASAL CANNULA, TOLERATING WELL. NO RESP DISTRESS OR SOB NOTED. STILL. NSR 80S PT REMAINS WITH IVF RUNNING. PT BED BATH REFUSED, THROUGHOUT SHIFT, PT REQUEST DURING DAY OR WHEN SOILED. SAFETY MEASURES IN PLACE. ALL NEEDS ATTENDED. DENIES PAIN. HOB ELEVATED. SIDE RAILS UP X2, BED LOCKED IN LOWEST POSITION WITH BED ALARM ON. CALL LIGHT WITHIN REACH. WILL ENDORSE TO DAY SHIFT RN FOR CONTINUATION OF CARE
[2020-11-28] MEDS: PANTOPRAZOLE 40 MG TABLET.DR PO SCH (07:56)
--- NOTE | 2020-11-28 08:00 | NUR ---
RN NOTES RECEIVED PATIENT IN THE BED A/OX3, ROOM AIR, REFUSED PAIN. NEEDS ATTENDED AND ANTICIPATED, AM CARE DONE , DUE MEDICATION ADMINISTERED, TOLERATED BREAKFAST 50% BY SELF. SKIN ASSESSMENT DONE AND PATIENT HAS SACRAL DTI, PICTURE TAKE, WOUND CONSULT TRIGGERED. SEEN PATIENT VIA WOUND NURSE KELSY. MINIMUM ASSIST TURN AND REPOSTION SELF IN THE BED. VELASQUEZ DRAINING DARK YELLOW OUTPUT. CALL LIGHT WITHIN TO REACH. VSS. WILL FOLLOW UP.
[2020-11-28] MEDS: CEFTRIAXONE 2 G in IV NS 0.9% 100 ML IV SCH (09:35)
--- NOTE | 2020-11-28 09:38 | NUR ---
WOUND CARE CONSULT: PT PRESENTS WITH LEFT FLANK DISCOLORATION WITH EDEMA, PRESENT ON ADMISSION. DEFER TO PMD FOR LEFT FLANK. PT ALSO NOTED TO HAVE SACRAL DEEP TISSUE INJURY IN EVOLUTION. RECOMMENDATIONS MADE FOR SKIN PROTECTION AND WOUND CARE. DISCUSSED WITH NURSING STAFF. PT IS ON AUGUSTO ISOFLEX LOW AIRLOSS BED. VELASQUEZ CATH NOTED. PT NOTED TO HAVE MULTIPLE CO-MORBIDITIES INCLUDING ACUTE ENCEPHALOPATHY, SEPSIS WITH PNEUMONIA, ACUTE KIDNEY INJURY, PANCYTOPENIA AND HISTORY OF WEIGHT LOSS. DUE TO MULTIPLE CO-MORBIDITIES, FURTHER SKIN BREAKDOWN MAY BE UNAVOIDABLE. MD IN AGREEMENT WITH PLAN OF CARE. Addendum: 11/28/20 at 0941 by KELSY HYAES WNDNU Amended: Links added.
[2020-11-28 10:52] LABS: BAND % (MANUAL) 3 % (0.0-5.0); EOSINOPHILS % (MANUAL) 1 % (0-4); LYMPHOCYTES % (MANUAL) 19 % (16-48); MONOCYTES % (MANUAL) 1 % (0-11.0); NEUTROPHILS % (MANUAL) 76 (42-76)
--- NOTE | 2020-11-28 12:00 | NUR ---
RN NOTES BS-343 MG/DL COVERAGE GIVEN.
--- NOTE | 2020-11-28 12:19 | NUR ---
RN NOTES STARTED ONE UNIT OF PRBC BLLOD TRANSFUSION AT THIS TIME 60ML/HR. VS TAKEN BP 101/62, P-93, R-21, T-97,7, O2-93ROOM AIR. PATIENT REFUSED PAIN, NO ACUTE RESPIRATORY DISTRESS, CO-SIGN WITH CO WORKER ARAVIND HOGUE. PATIENT A/OX3, EATING LUNCH. WILL FOLLOW UP.
--- NOTE | 2020-11-28 12:45 | NUR ---
RN NOTES PATIENT STABLE REFUSED PAIN, T-97.7, R-20, P-94, BP 111/69, 02- ROOM AIR, INCREASED BLOOD INFUSING 120 ML/HR . PATIENT REFUSED PAIN, NO ACUTE RESPIRATORY DISTRESS. MANAGE LUNCH SELF 75%. ASSIST USING BEDSIDE COMMODE. WILL FOLLOW UP.
--- NOTE | 2020-11-28 13:47 | NUR ---
RN NOTES SEEN EXHIBIT CARPENTER DR LAZARO CANCELED HD, BECAUSE PATIENT PROGRESSIVELY STARTED INCREASE URINE OUTPUT. PATIENT A/OX3, WATCHING TV.
--- NOTE | 2020-11-28 14:00 | NUR ---
RN NOTES PATIENT STABLE RUNNING 120ML/HR ON BLOOD TRANSFUSION, NO RESPIRATORY DISTRESS, VSS, VSS. WILL MONITORING.
[2020-11-28] MEDS: TBO-FILGRASTIM 480 MCG/0.8 ML ML SQ SCH (14:29)
--- NOTE | 2020-11-28 15:20 | NUR ---
RN NOTES END BLOOD TRANSFUSION AT THIS TIME, PATIENT STABLE, REFUSED PAIN, NO ACUTE RESPIRATORY DISTRESS, VSS, T-98f. WILL FOLLOW UP.
--- NOTE | 2020-11-28 18:25 | NUR ---
RN NOTES PATIENT PM CARE DONE, TOLERATED DINNER 15%, BS-290 MG/DL COVERAGE GIVEN, ASSIST TURN AD REPOSITION Q 2HR. INFUSING NS @75ML/HR ON LEFT PICC LINE INTACT. PATIENT REFUSED PAIN. GET ORDER TRANSFER PATIENT TO THE MED/SURGE UNIT. VELASQUEZ DRAINING VIA GRAVITY, OUTPUT WAS 1650 ENTIRE SHIFT. CALL LIGHT WITHIN TO REACH. WILL FOLLOW UP. ENDORSED ONCOMING NURSE FOLLOW PLAN OF CARE.
--- NOTE | 2020-11-28 19:00 | NUR ---
RN NOTES PATIENT TRANSFERRED TO THE MED/SURGE UNIT ROOM 321 BED 1. PATIENT STABLE, NO ACUTE RESPIRATORY DISTRESS, VSS. BELONGING WITH THE PATIENT. REPORT GIVEN BEDSIDE NIGHT RN SHEERLY FOLLOW PLAN OF CARE.RN VERBALIZED UNDERSTANDING.
--- NOTE | 2020-11-28 19:30 | NUR ---
NIURKA RECEIVED FROM ICU 55 Y/O MALE DX OF RENAL FAILURE. ALERT/ORIENTED X3. ORIENTED TO ROOM FACILITY. NO SOB, SAFETY PRECAUTIONS EMPHASIZED, BED ALARM ON SIDERAILS X3 UP. REMINDED TO CALL STAFF FOR ANY ASSISTANCE OR DISCOMFORTS. DENIES ANY PAIN, STATED "JUST TIRED" . NO NEEDS FOR NOW TO CONTINUE.
--- NOTE | 2020-11-28 20:32 | NUR ---
MSRN HHN TREATMENT ON PROGRESS
[2020-11-29] MEDS: INSULIN REGULAR, HUMAN 100 UNIT/ML 3 ML VIAL SQ PRN ×3 (00:12→17:15)
--- NOTE | 2020-11-29 00:40 | NUR ---
MSRN BS 284 COVERED WITH 6 UNITS OF REGULAR INSULIN, SNACKS PROVIDED, ATE 100%. HAD SMALL BM, FELT LESS ABDOMINAL DISCOMFORTS.
[2020-11-29] MEDS: IPRATROPIUM NEB FS 0.5 MG/2.5 ML AMPUL.NEB NEB SCH ×6 (03:30→23:41)
[2020-11-29] MEDS: ALBUTEROL HALF STRENGTH 1.25 MG/3 ML VIAL.NEB NEB SCH ×6 (03:30→23:41)
--- NOTE | 2020-11-29 03:46 | NUR ---
RT NOTE PT REFUSED TX AT THIS TIME. NO RESPIRATORY DISTRESS NOTED. LENNIE GALINDO NOTIFIED.
[2020-11-29] MEDS: METRONIDAZOLE 500MG/ NS 100ML 500 MG in PREMIX 1 EA IV SCH ×3 (05:53→21:10)
[2020-11-29] MEDS: BLOOD SUGAR DIAGNOSTIC 1 EACH STRIP IN SCH ×3 (06:17→17:12)
[2020-11-29 06:24] LABS: BASOPHILS % (AUTO) 0.4 % (0.0-2.0); EOSINOPHILS % (AUTO) 0.2 % (0.0-6.0); HEMATOCRIT 23 % (39-51); HEMOGLOBIN 7.9 g/dL (13.5-17.5); LYMPHOCYTES # (AUTO) 0.3 K/uL (0.8-4.8); LYMPHOCYTES % (AUTO) 13.7 % (20.0-44.0); MEAN CORPUSCULAR HGB CONC 34 g/dl (31.0-36.0); MEAN CORPUSCULAR VOLUME 81 fL (80-96); MONOCYTES % (AUTO) 0.6 % (2.0-12.0); NEUTROPHILS % (AUTO) 85.1 % (43.0-81.0); RED BLOOD CELL COUNT(AUTO) 2.89 MIL/uL (4.5-6.0); WHITE BLOOD COUNT (AUTO) 2.4 K/uL (4.3-11.0)
--- NOTE | 2020-11-29 07:00 | NUR ---
MSRN ENDORSED TO INCOMING RN. COOPERATIVE, 2600 URINE OUTPUT CLEAR YELLOW. BS 254 INCOMING RN TO ADMINISTER INSULIN PER COVERAGE.
[2020-11-29 07:16] LABS: CALCIUM, SERUM 6.1 mg/dL (8.5-10.1); CREATININE 4.1 mg/dL (0.6-1.3); MAGNESIUM 1.9 mg/dL (1.8-2.4); PHOSPHORUS 7.1 mg/dL (2.5-4.9); POTASSIUM 3.7 mmol/L (3.5-5.1)
--- NOTE | 2020-11-29 07:16 | NUR ---
RN NOTES SEEN PATIENT IN BED RESTING, AWAKE AND VERBALLY RESPONSIVE. A/O X3, FILIPINO-SPEAKING BUT UNDERSTANDS [place] AND ABLE TO MAKE NEEDS KNOWN. BREATHING EVEN AND UNLABORED, NO RESPIRATORY DISTRESS. IV LINES INTACT AND PATENT, IVF INFUSING WELL. VELASQUEZ CATH IN PLACE, DRAINING YELLOW-COLORED URINE. SAFETY MEASURES IN PLACE. WILL CONTINUE TO MONITOR.
[2020-11-29 07:34] LABS: PLATELET COUNT (AUTO) 19 K/uL (150-450)
[2020-11-29 08:00] VITALS: BP 111/71
[2020-11-29] MEDS: PANTOPRAZOLE 40 MG TABLET.DR PO SCH (08:14)
[2020-11-29] MEDS: CEFTRIAXONE 2 G in IV NS 0.9% 100 ML IV SCH (08:15)
--- NOTE | 2020-11-29 10:00 | NUR ---
RN NOTES DIAMOND PT, IN THE ROOM FOR PT EVAL.
[2020-11-29] MEDS: IV NS 0.9% 1,000 ML IV PRN (13:13)
--- NOTE | 2020-11-29 13:30 | NUR ---
RN NOTES PATIENT SEEN BY RALPH GARCIA, FOR ONCO FOLLOW-UP. PER FLOOR SWEEPER, SHE SPOKE W/ FAMILY OF PATIENT AND PROVIDED UPDATE.
[2020-11-29 16:00] VITALS: BP 113/71
--- NOTE | 2020-11-29 19:05 | NUR ---
RN NOTES SEEN PATIENT IN BED RESTING W/ EYES CLOSED, ABLE TO BE AWAKENED. A/O X3, ABLE TO MAKE NEEDS KNOWN. BREATHING EVEN AND UNLABORED, NO RESPIRATORY DISTRESS. IV LINES INTACT AND PATENT, IVF INFUSING WELL. VELASQUEZ CATH IN PLACE, DRAINING YELLOW-COLORED URINE. ASSISTED W/ BED MOBILITY TOLERATED. DUE MEDS GIVEN. SAFETY MEASURES MAINTAINED. WILL ENDORSE TO SENIOR LOGISTICS MANAGER RN FOR OLAF.
--- NOTE | 2020-11-29 19:30 | NUR ---
RN OPENING NOTE PATIENT IN BED, SLEEPING, EASILY AWAKENED. A/O X 3, ABLE TO MAKE NEEDS KNOWN. PATIENT HAS A RIGHT UPPER ARM MIDLINE, PATENT AND INTACT, WITH ONGOING IVF. VELASQUEZ CATHETER IN PLACE, DRAINING YELLOW URINE. SAFETY MEASURES IN PLACE: BED LOCKED AND IN LOWEST POSITION, CALL LIGHT WITHIN REACH, SIDE RAILS UP. WILL MONITOR PATIENT CLOSELY.
[2020-11-29 20:00] VITALS: BP 107/73
--- NOTE | 2020-11-29 20:22 | NUR ---
RT NOTE PT REFUSED TX AT THIS TIME. NO RESPIRATORY DISTRESS NOTED. PT ASLEEP AND RESTING COMFORTABLY. RN NOTIFIED.
--- NOTE | 2020-11-30 | NUR ---
RN NOTE BS 270, 6 UNITS GIVEN FOR COVERAGE. SNACKS PROVIDED. WILL MONITOR PATIENT FOR HYPOGLYCEMIA
[2020-11-30] MEDS: BLOOD SUGAR DIAGNOSTIC 1 EACH STRIP IN SCH ×4 (00:08→17:13)
[2020-11-30] MEDS: INSULIN REGULAR, HUMAN 100 UNIT/ML 3 ML VIAL SQ PRN ×5 (00:12→23:59)
[2020-11-30] MEDS: ALBUTEROL HALF STRENGTH 1.25 MG/3 ML VIAL.NEB NEB SCH ×6 (03:43→23:28)
[2020-11-30] MEDS: IPRATROPIUM NEB FS 0.5 MG/2.5 ML AMPUL.NEB NEB SCH ×6 (03:43→23:28)
[2020-11-30] MEDS: METRONIDAZOLE 500MG/ NS 100ML 500 MG in PREMIX 1 EA IV SCH ×3 (04:20→21:08)
--- NOTE | 2020-11-30 05:42 | NUR ---
RN NOTE BS 227, 4 UNITS GIVEN FOR COVERAGE. JUICE AND SNACKS PROVIDED. WILL MONITOR FOR HYPOGLYCEMIA
[2020-11-30 06:19] LABS: BASOPHILS % (AUTO) 0.3 % (0.0-2.0); EOSINOPHILS % (AUTO) 0.3 % (0.0-6.0); HEMATOCRIT 23 % (39-51); HEMOGLOBIN 7.7 g/dL (13.5-17.5); LYMPHOCYTES # (AUTO) 0.4 K/uL (0.8-4.8); MEAN CORPUSCULAR HGB CONC 34 g/dl (31.0-36.0); MEAN CORPUSCULAR VOLUME 82 fL (80-96); MONOCYTES % (AUTO) 0.9 % (2.0-12.0); NEUTROPHILS % (AUTO) 82.5 % (43.0-81.0); RED BLOOD CELL COUNT(AUTO) 2.79 MIL/uL (4.5-6.0); WHITE BLOOD COUNT (AUTO) 2.4 K/uL (4.3-11.0)
[2020-11-30 06:34] LABS: PLATELET COUNT (AUTO) 31 K/uL (150-450)
[2020-11-30] MEDS: IV NS 0.9% 1,000 ML IV PRN (07:18)
--- NOTE | 2020-11-30 07:20 | NUR ---
RN CLOSING NOTE PATIENT IN BED, AWAKE. BREATHING EVEN AND UNLABORED. PATIENT'S IV ACCESS PATENT AN INTACT WITH ONGOING IVF. ALL ORDERS CARRIED OUT, ALL NEEDS MET AND ATTENDED. SAFETY MEASURES MAINTAINED. ENDORSED TO DAY SHIFT RN.
[2020-11-30 07:29] LABS: CALCIUM, SERUM 6.6 mg/dL (8.5-10.1); CREATININE 3.5 mg/dL (0.6-1.3); MAGNESIUM 1.7 mg/dL (1.8-2.4); PHOSPHORUS 6.9 mg/dL (2.5-4.9); POTASSIUM 3.2 mmol/L (3.5-5.1)
[2020-11-30] MEDS: PANTOPRAZOLE 40 MG TABLET.DR PO SCH (07:42)
--- NOTE | 2020-11-30 07:49 | NUR ---
MS/RN OPENING NOTES RECEIVED PATIENT ON BED AWAKE ALERT AND ORIENTED X3. PATIENT IS ON ROOM AIR. PATIENT IN NO APPARENT RESPIRATORY DISTRESS NOTED. NO COMPLAINED OF PAIN NOTED AT THIS TIME. WILL CONTINUE TO MONITOR.
[2020-11-30 08:00] VITALS: BP 138/80
[2020-11-30 08:18] LABS: LYMPHOCYTES % (MANUAL) 15 % (16-48); MONOCYTES % (MANUAL) 2 % (0-11.0); NEUTROPHILS % (MANUAL) 83 (42-76)
[2020-11-30] MEDS: CEFTRIAXONE 2 G in IV NS 0.9% 100 ML IV SCH (08:42)
--- NOTE | 2020-11-30 09:07 | NUR ---
RT TX DIFFERED AT THIS TIME. RT BUSY IN THE ER. PT IS AWAKE, NO SOB NOTED AT THIS TIME.
--- NOTE | 2020-11-30 11:19 | NUR ---
MS/RN NOTES POTASSIUM 3.[address] DORANTES WAS AWARE NO NEW ORDER AT THIS TIME. WILL FOLLOW UP.
[2020-11-30] MEDS ORDERED: POTASSIUM CHLORIDE 20 MEQ TAB.PRT.SR PO ONE (12:30)
[2020-11-30] MEDS: Magnesium 1GM/D5W 100ML PREMIX 100 ML IV SCH ×2 (13:00→14:32)
[2020-11-30] MEDS: EPOETIN ALFA-EPBX 10,000 UNIT/ML VIAL SQ SCH (14:42)
[2020-11-30 16:00] VITALS: BP 105/63
--- NOTE | 2020-11-30 19:24 | NUR ---
MS/RN CLOSING NOTES PATIENT IS ON BED ALERT AND ORIENTED X3. PATIENT IS ON ROOM AIR. PATIENT IN NO APPARENT RESPIRATORY DISTRESS NOTED. NO COMPLAINED OF PAIN NOTED AT THIS TIME. IV ACCESS AT LEFT UPPER ARM PICC LINE WITH IV FLUID OF NS AT 75ML/HOUR ON AND INFUSING WELL. SEEN AND EXAMINED BY MD WITH ORDERS MADE AND CARRIED OUT. ALL DUE MEDICATIONS WAS GIVEN. SAFETY PRECAUTIONS WAS IN PLACED. BED IN LOWEST POSITION AND LOCKED. SIDE RAILS UP X2. CALL LIGHT WITHIN REACH. WILL ENDORSE TO [employer] RN FOR CONTINUITY OF CARE.
[2020-11-30 20:00] VITALS: BP 127/76
--- NOTE | 2020-11-30 23:52 | NUR ---
MS RN NOTES PATIENT'S BLOOD SUGAR AT 2352 WAS 286. WILL GIVE ORDERED 6 UNITS OF REGULAR INSULIN SQ. WILL CONTINUE TO MONITOR THE PATIENT.
--- NOTE | 2020-12-01 01:55 | NUR ---
MS RN OPENING NOTES PATIENT WAS LAST SEEN AWAKE IN BED RESTING. PATIENT'S ALERT AND ORIENTEDX3. PATIENT'S STABLE ON ROOM AIR. SOPHIA PICC LINE NOTED INFUSING NS AT 75ML/HOUR. SAFETY MEASURES IN PLACE: BED LOCKED, BED ALARM ON, SIDE RAILS UP X3, AND CALL LIGHT WITHIN REACH OF THE PATIENT. WILL CONTINUE TO MONITOR THE PATIENT.
--- NOTE | 2020-12-01 01:59 | NUR ---
MS RN NOTES WOUND CARE WAS PERFORMED ORDERED ON SACRAL DTI. WILL CONTINUE TO MONITOR THE PATIENT.
[2020-12-01] MEDS: IPRATROPIUM NEB FS 0.5 MG/2.5 ML AMPUL.NEB NEB SCH ×6 (03:35→23:30)
[2020-12-01] MEDS: ALBUTEROL HALF STRENGTH 1.25 MG/3 ML VIAL.NEB NEB SCH ×6 (03:35→23:30)
[2020-12-01] MEDS: METRONIDAZOLE 500MG/ NS 100ML 500 MG in PREMIX 1 EA IV SCH (04:43)
--- NOTE | 2020-12-01 05:12 | NUR ---
MS RN NOTES PATIENT'S BLOOD SUGAR AT 0512 WAS 236. ORDERED 4 UNITS OF REGULAR INSULIN WAS GIVEN SQ. WILL CONTINUE TO MONITOR THE PATIENT.
[2020-12-01] MEDS: INSULIN REGULAR, HUMAN 100 UNIT/ML 3 ML VIAL SQ PRN ×3 (05:20→18:16)
[2020-12-01] MEDS: BLOOD SUGAR DIAGNOSTIC 1 EACH STRIP IN SCH ×4 (05:49→18:19)
[2020-12-01 07:07] LABS: CALCIUM, SERUM 6.9 mg/dL (8.5-10.1); CREATININE 2.7 mg/dL (0.6-1.3); MAGNESIUM 1.7 mg/dL (1.8-2.4); PHOSPHORUS 5.5 mg/dL (2.5-4.9); POTASSIUM 2.9 mmol/L (3.5-5.1)
[2020-12-01 07:24] LABS: BASOPHILS % (AUTO) 0.5 % (0.0-2.0); EOSINOPHILS % (AUTO) 0.6 % (0.0-6.0); HEMATOCRIT 23 % (39-51); HEMOGLOBIN 7.7 g/dL (13.5-17.5); LYMPHOCYTES # (AUTO) 0.5 K/uL (0.8-4.8); LYMPHOCYTES % (AUTO) 20.8 % (20.0-44.0); MEAN CORPUSCULAR HGB CONC 34 g/dl (31.0-36.0); MEAN CORPUSCULAR VOLUME 82 fL (80-96); MONOCYTES % (AUTO) 0.9 % (2.0-12.0); NEUTROPHILS # (AUTO) 1.8 K/uL (1.8-8.9); NEUTROPHILS % (AUTO) 77.2 % (43.0-81.0); PLATELET COUNT (AUTO) 56 K/uL (150-450); RED BLOOD CELL COUNT(AUTO) 2.75 MIL/uL (4.5-6.0); WHITE BLOOD COUNT (AUTO) 2.3 K/uL (4.3-11.0)
--- NOTE | 2020-12-01 07:30 | NUR ---
MS RN OPENING NOTES RECEIVED PATIENT ON BED, AWAKE AND A/O X4. ON ROOM AIR TOLERATING WELL WITH NO SOB NOTED. NOT IN DISTRESS. WITH NO COMPLAINTS OF PAIN AT THIS TIME. WITH IV ACCESS AT LEFT UPPER ARM PICC LINE WITH IVF NS AT 75ML/HR. SAFETY MEASURES IN PLACED. CALL LIGHT WITHIN REACH. BED ON LOWEST AND LOCKED POSITION, SIDE RAILS UP X2. WILL CONTINUE TO MONITOR.
--- NOTE | 2020-12-01 07:32 | NUR ---
WOUND CARE FOLLOW UP: PT SEEN FOR RE-EVALUATION OF SACRAL DEEP TISSUE INJURY IN EVOLUTION. WOUND CONTINUES TO BE IN EVOLUTION WITH SMALL OPEN AREA. RECOMMENDATIONS MADE FOR SKIN PROTECTION AND WOUND CARE. DISCUSSED WITH NURSING STAFF. PT IS ON AUGUSTO ISOFLEX LOW AIRLOSS BED. PT ABLE TO ASSIST WITH TURNING AND REPOSITIONING AT THIS TIME. MD IN AGREEMENT WITH PLAN OF CARE. Addendum: 12/01/20 at 0734 by KELSY HAYES WNDNU Amended: Links added.
[2020-12-01 08:00] VITALS: BP 136/75
[2020-12-01] MEDS: PANTOPRAZOLE 40 MG TABLET.DR PO SCH (08:25)
[2020-12-01] MEDS: CEFTRIAXONE 2 G in IV NS 0.9% 100 ML IV SCH (08:26)
[2020-12-01 09:51] LABS: BAND % (MANUAL) 1 % (0.0-5.0); LYMPHOCYTES % (MANUAL) 20 % (16-48); MONOCYTES % (MANUAL) 1 % (0-11.0); NEUTROPHILS % (MANUAL) 78 (42-76)
--- NOTE | 2020-12-01 11:21 | NUR ---
RT NOTE PT DIFFERED TX AT THIS TIME. NO SOB NOTED AT THIS TIME.
[2020-12-01] MEDS: METRONIDAZOLE 500 MG TABLET PO SCH ×2 (13:08→20:57)
[2020-12-01] MEDS: POTASSIUM CL. PREMIX PERIPHER. 50 ML IV SCH ×4 (13:41→18:20)
[2020-12-01 16:00] VITALS: BP 131/76
[2020-12-01] MEDS: IV NS 0.9% 1,000 ML IV PRN (16:31)
--- NOTE | 2020-12-01 19:35 | NUR ---
MS RN CLOSING NOTES PATIENT ON BED, AWAKE AND A/O X4. ON ROOM AIR TOLERATING WELL WITH NO SOB NOTED. NOT IN DISTRESS. WITH NO COMPLAINTS OF PAIN AT THIS TIME. WITH IV ACCESS AT LEFT UPPER ARM PICC LINE WITH IVF NS AT 75ML/HR. DUE MEDS GIVEN. SAFETY MEASURES IN PLACED. CALL LIGHT WITHIN REACH. BED ON LOWEST AND LOCKED POSITION, SIDE RAILS UP X2. WILL ENDORSE TO NEXT SHIFT FOR OLAF.
--- NOTE | 2020-12-01 19:55 | NUR ---
MS RN NOTE PATIENT AWAKE IN BED, ALERT/ORIENTED X 3, PT ABLE TO MAKE NEEDS KNOWN. PT DENIES PAIN AT THIS TIME. PT STABLE ON RA, NO S/S OF DISTRESS OR SOB NOTED, BREATHING EVEN AND UNLABORED. SOPHIA PICC LINE INTACT AND RUNNING NS @ 150 ML/HR. RIGHT FEMORAL HD CATH INTACT. VELASQUEZ CATHETER INTACT AND DRAINING WELL. SAFETY MEASURES IN PLACE: CALL LIGHT WITHIN REACH, BED LOCKED IN LOW POSITION, SIDE RAILS UP X 2, BED ALARM ON. WILL CONTINUE TO MONITOR PATIENT
[2020-12-01 20:00] VITALS: BP 127/72
--- NOTE | 2020-12-01 23:35 | NUR ---
PATIENT REFUSED RESPIRATORY TREATMENT AT THIS TIME; RN NOTIFIED. Addendum: 12/01/20 at 2336 by JEAN-PAUL MAHMOOD RT Amended: Links added.
[2020-12-02] VITALS (9 sets, daily range): BP systolic 114–139; BP diastolic 64–83
[2020-12-02] MEDS: BLOOD SUGAR DIAGNOSTIC 1 EACH STRIP IN SCH ×5 (00:31→23:20)
[2020-12-02] MEDS: INSULIN REGULAR, HUMAN 100 UNIT/ML 3 ML VIAL SQ PRN ×5 (00:33→23:21)
[2020-12-02] MEDS: IV NS 0.9% 1,000 ML IV PRN ×2 (01:29→08:21)
[2020-12-02] MEDS: HYDROCODONE/APAP 5/325MG TABLET PO PRN (02:39)
[2020-12-02] MEDS: IPRATROPIUM NEB FS 0.5 MG/2.5 ML AMPUL.NEB NEB SCH ×7 (03:33→23:50)
[2020-12-02] MEDS: ALBUTEROL HALF STRENGTH 1.25 MG/3 ML VIAL.NEB NEB SCH ×7 (03:33→23:55)
[2020-12-02] MEDS: METRONIDAZOLE 500 MG TABLET PO SCH ×3 (05:30→20:26)
[2020-12-02 06:30] LABS: BASOPHILS % (AUTO) 0.4 % (0.0-2.0); EOSINOPHILS % (AUTO) 0.5 % (0.0-6.0); LYMPHOCYTES # (AUTO) 0.4 K/uL (0.8-4.8); LYMPHOCYTES % (AUTO) 23.7 % (20.0-44.0); MEAN CORPUSCULAR HGB CONC 34 g/dl (31.0-36.0); MEAN CORPUSCULAR VOLUME 83 fL (80-96); NEUTROPHILS # (AUTO) 1.3 K/uL (1.8-8.9); NEUTROPHILS % (AUTO) 74.4 % (43.0-81.0); PLATELET COUNT (AUTO) 72 K/uL (150-450); RED BLOOD CELL COUNT(AUTO) 2.43 MIL/uL (4.5-6.0)
[2020-12-02 06:57] LABS: CALCIUM, SERUM 6.6 mg/dL (8.5-10.1); CREATININE 2.1 mg/dL (0.6-1.3); MAGNESIUM 1.3 mg/dL (1.8-2.4); PHOSPHORUS 4.1 mg/dL (2.5-4.9)
[2020-12-02 07:01] LABS: HEMATOCRIT 20 % (39-51); HEMOGLOBIN 6.8 g/dL (13.5-17.5); WHITE BLOOD COUNT (AUTO) 1.8 K/uL (4.3-11.0)
--- NOTE | 2020-12-02 07:26 | NUR ---
MS RN CLOSING NOTE PATIENT SLEEPING IN BED, PT STABLE ON RA, NO S/S OF DISTRESS OR SOB NOTED, BREATHING EVEN AND UNLABORED. SOPHIA PICC LINE INTACT AND RUNNING NS @ 150 ML/HR. RIGHT FEMORAL HD CATH INTACT. VELASQUEZ CATHETER INTACT AND DRAINING WELL. MEDICATIONS GIVEN ORDERED, PT NEEDS MET THROUGHOUT SHIFT. SAFETY MEASURES IN PLACE: CALL LIGHT WITHIN REACH, BED LOCKED IN LOW POSITION, SIDE RAILS UP X 2, BED ALARM ON. ENDORSED TO DAY SHIFT NURSE FOR CONTINUITY OF CARE
--- NOTE | 2020-12-02 07:30 | NUR ---
MS RN OPENING NOTES RECEIVED PATIENT ON BED, AWAKE AND A/O X2-3. ON ROOM AIR TOLERATING WELL. NO SOB NOTED. NOT IN DISTRESS. WITH NO COMPLAINTS OF PAIN AT THIS TIME. WITH IV ACCESS AT LEFT UPPER ARM PICC LINE WITH IVF NS AT 150ML/HR. WITH RIGHT FEMORAL HD CATH INTACT. WITH VELASQUEZ CATHETER INTACT AND DRAINING WELL. SAFETY MEASURES IN PLACE. BED ON LOWEST AND LOCKED POSITION, SIDE RAILS UP X2. CALL LIGHT WITHIN REACH. WILL CONTINUE TO MONITOR.
[2020-12-02] MEDS: CEFTRIAXONE 2 G in IV NS 0.9% 100 ML IV SCH (08:07)
[2020-12-02] MEDS: PANTOPRAZOLE 40 MG TABLET.DR PO SCH (08:07)
--- NOTE | 2020-12-02 11:39 | NUR ---
MS RN NOTES PATIENT FOR BLOOD TRANSFUSION 1 UNIT PRBC. CHECKED WITH LENNIE MONTANO TO START BLOOD TRANSFUSION. VITAL SIGNS CHECKED: STABLE. STARTED BLOOD TRANSFUSION AT 60ML/HR FOR 15MIN. WILL CONTINUE TO MONITOR.
--- NOTE | 2020-12-02 11:54 | NUR ---
RN NOTES VITAL SIGNS CHECKED: STABLE. ADJUSTED BLOOD TRANSFUSION RATE TO 100ML/HR.
[2020-12-02 12:07] LABS: LYMPHOCYTES % (MANUAL) 20 % (16-48); NEUTROPHILS % (MANUAL) 78 (42-76)
[2020-12-02 12:08] LABS: MONOCYTES % (MANUAL) 2 % (0-11.0)
[2020-12-02] MEDS: Magnesium 1GM/D5W 100ML PREMIX 100 ML IV SCH ×4 (15:26→22:53)
[2020-12-02] MEDS: POTASSIUM CL. PREMIX PERIPHER. 50 ML IV SCH ×4 (15:26→22:32)
--- NOTE | 2020-12-02 15:50 | NUR ---
RN NOTES STOPPED BLOOD TRANSFUSION. WITH STABLE VITAL SIGNS.
--- NOTE | 2020-12-02 19:20 | NUR ---
MS RN OPENING NOTE PT RESTING IN BED, EASILY AROUSABLE TO STIMULI, A/OX3, ABLE TO VERBALIZE NEEDS. ON ROOM AIR AND RIMMA. WELL. NO SOB. DENIES PAIN. IV SITE: SOPHIA PICC LINE INTACT/PATENT, WITH DRESSING C/D/I. R-FEMORAL HD CATH W/PIGTAIL IN PLACE WITH DRESSING C/D/I. ONGOING MAGNESIUM AND POTASSIUM REPLETION. PT IN NO ACUTE DISTRESS. SAFETY MEASURES IN PLACE, BED IN LOWEST LOCKED POSITION, S/R UPX2, CALL LIGHT WITHIN REACH. WILL CONT TO MONITOR.
--- NOTE | 2020-12-02 19:55 | NUR ---
MS RN CLOSING NOTES PATIENT ON BED, RESTING AND A/O X2-3. ON ROOM AIR TOLERATING WELL. NO SOB NOTED. NOT IN DISTRESS. WITH NO COMPLAINTS OF PAIN AT THIS TIME. WITH IV ACCESS AT LEFT UPPER ARM PICC LINE WITH IVF NS AT 150ML/HR. WITH RIGHT FEMORAL HD CATH INTACT. WITH VELASQUEZ CATHETER INTACT AND DRAINING WELL. SAFETY MEASURES IN PLACE. BED ON LOWEST AND LOCKED POSITION, SIDE RAILS UP X2. WILL ENDORSE TO NEXT SHIFT FOR OLAF.
--- NOTE | 2020-12-02 20:20 | NUR ---
RT notes Pt refused HHN TX at this time. No resp distress/SOB noted at this time.
[2020-12-03] MEDS: ALBUTEROL HALF STRENGTH 1.25 MG/3 ML VIAL.NEB NEB SCH ×6 (03:30→23:30)
--- NOTE | 2020-12-03 04:10 | NUR ---
RT notes Pt refused HHN TX at this time. No resp distress/SOB noted at this time.
[2020-12-03] MEDS: METRONIDAZOLE 500 MG TABLET PO SCH ×3 (05:18→20:58)
[2020-12-03] MEDS: INSULIN REGULAR, HUMAN 100 UNIT/ML 3 ML VIAL SQ PRN ×4 (05:38→23:43)
[2020-12-03] MEDS: BLOOD SUGAR DIAGNOSTIC 1 EACH STRIP IN SCH ×4 (05:40→23:41)
[2020-12-03 06:14] LABS: EOSINOPHILS % (AUTO) 0.8 % (0.0-6.0); HEMATOCRIT 22 % (39-51); HEMOGLOBIN 7.4 g/dL (13.5-17.5); LYMPHOCYTES # (AUTO) 0.4 K/uL (0.8-4.8); LYMPHOCYTES % (AUTO) 26.9 % (20.0-44.0); MEAN CORPUSCULAR HGB CONC 33 g/dl (31.0-36.0); MEAN CORPUSCULAR VOLUME 84 fL (80-96); MONOCYTES % (AUTO) 1.2 % (2.0-12.0); NEUTROPHILS # (AUTO) 1.1 K/uL (1.8-8.9); NEUTROPHILS % (AUTO) 70.1 % (43.0-81.0); PLATELET COUNT (AUTO) 101 K/uL (150-450); RED BLOOD CELL COUNT(AUTO) 2.68 MIL/uL (4.5-6.0)
[2020-12-03 06:19] LABS: WHITE BLOOD COUNT (AUTO) 1.6 K/uL (4.3-11.0)
--- NOTE | 2020-12-03 06:45 | NUR ---
MS RN CLOSING NOTE PT RESTING IN BED, EASILY AROUSABLE TO STIMULI. NO C/O PAIN. NO SOB. IV SITE: SOPHIA PICC LINE INTACT/PATENT, RUNNING NS @150ML/HR. R-FEMORAL HD CATH W/PIGTAIL IN PLACE WITH DRESSING C/D/I. F/C INTACT, DRAINING YELLOW URINE, NO HEMATURIA NOTED. NO ACUTE EVENTS DURING THE SHIFT. SAFETY MEASURES MAINTAINED. ALL NEEDS ATTENDED TO.
[2020-12-03 07:20] LABS: BILIRUBIN,TOTAL 0.9 mg/dL (0.2-1.0); CALCIUM, SERUM 6.6 mg/dL (8.5-10.1); CREATININE 1.6 mg/dL (0.6-1.3); MAGNESIUM 1.9 mg/dL (1.8-2.4); PHOSPHORUS 3.2 mg/dL (2.5-4.9); POTASSIUM 3.2 mmol/L (3.5-5.1); TOTAL PROTEIN, SERUM 5.6 g/dL (6.4-8.2)
--- NOTE | 2020-12-03 07:37 | NUR ---
RN OPENING NOTE- PT RESTING IN BED, A/OX3, ABLE TO VERBALIZE NEEDS. ON ROOM AIR NO SOB. DENIES PAIN. IV SITE: SOPHIA PICC LINE INTACT/PATENT, WITH DRESSING C/D/I. R-FEMORAL HD CATH W/PIGTAIL IN PLACE WITH DRESSING C/D/I. PT IN NO ACUTE DISTRESS. SAFETY MEASURES IN PLACE, BED IN LOWEST LOCKED POSITION, S/R UPX2, CALL LIGHT WITHIN REACH. WILL CONT TO MONITOR.
[2020-12-03 07:50] LABS: ALBUMIN 1.4 g/dL (3.4-5.0)
[2020-12-03 08:00] VITALS: BP 141/81
[2020-12-03] MEDS: PANTOPRAZOLE 40 MG TABLET.DR PO SCH (08:05)
[2020-12-03] MEDS: IPRATROPIUM NEB FS 0.5 MG/2.5 ML AMPUL.NEB NEB SCH ×5 (08:18→23:30)
--- NOTE | 2020-12-03 08:51 | NUR ---
RN NOTE- ALBUMIN 1.4. DR DORANTES MADE AWARE. NO NEW ORDERS
[2020-12-03 09:26] LABS: BAND % (MANUAL) 5 % (0.0-5.0); EOSINOPHILS % (MANUAL) 2 % (0-4); LYMPHOCYTES % (MANUAL) 17 % (16-48); MONOCYTES % (MANUAL) 2 % (0-11.0); NEUTROPHILS % (MANUAL) 74 (42-76)
[2020-12-03] MEDS: CEFTRIAXONE 2 G in IV NS 0.9% 100 ML IV SCH (09:34)
[2020-12-03] MEDS ORDERED: POTASSIUM CHLORIDE 20 MEQ TAB.PRT.SR PO ONE (10:00)
[2020-12-03] MEDS ORDERED: POTASSIUM CHLORIDE 10 MEQ TABLET.SA PO ONE (10:00)
--- NOTE | 2020-12-03 12:10 | NUR ---
RN NOTE- FLAGYL 1300 DOSE WOULDN'T SCAN . ADMINISTERED
--- NOTE | 2020-12-03 14:21 | NUR ---
RT NOTE, PT SEEN T/O DAY POST ASSESSMENT 0730 AM GIVEN PER PT. HE STATED HE TIRED OF TREATMENT CHECK WITH ME BEFORE GIVING NEXT BREATHING TREATMENTS , 1130 & 1530 MEDS REFUSING UNTIL HE WANTS ASK FOR PRN ORDER. PT. STABLE NO SOB NOTED CONTINUE TO MONITOR. RN AND MD WILL BE INFORMED.
[2020-12-03 14:37] LABS: OCCULT BLOOD STOOL NEGATIVE (NEGATIVE)
[2020-12-03 16:00] VITALS: BP 135/63
--- NOTE | 2020-12-03 17:45 | NUR ---
RN NOTE- ACCU-CHECK BS-159. PT REFUSED SSI. ATE 25% EVENING MEAL
--- NOTE | 2020-12-03 18:46 | NUR ---
RN CLOSING NOTE- PT RESTING IN BED. NO C/O PAIN. NO SOB. IV SITE: SOPHIA PICC LINE INTACT/PATENT, RUNNING NS @150ML/HR. R-FEMORAL HD CATH W/PIGTAIL IN PLACE WITH DRESSING C/D/I. F/C INTACT, DRAINING YELLOW URINE, NO HEMATURIA NOTED. NO ACUTE EVENTS DURING THE SHIFT. SAFETY MEASURES MAINTAINED. ALL NEEDS ATTENDED TO.
--- NOTE | 2020-12-03 19:20 | NUR ---
RN OPENING NOTE PT AWAKE, A/OX3, ABLE TO VERBALIZE NEEDS. RESPIRATIONS EVEN/UNLABORED. ON ROOM AIR AND RIMMA WELL. IV SITE: SOPHIA PICC LINE INTACT/PATENT, RUNNING NS @150ML/HR. F/C IN PLACE, DRAINING YELLOW URINE. PT SEEN BY DR. BOLAÑOS. PT FOR BONE MARROW BIOPSY AND ASPIRATION TOMORROW, AND EXPLAINED BY DR. MARINO TO PT. PT AGREEABLE AND SIGNED CONSENT. NO ACUTE DISTRESS NOTED. SAFETY MEASURES IN PLACE, BED IN LOWEST LOCKED POSITION, S/R UPX2, CALL LIGHT WITHIN REACH. WILL CONT TO MONITOR.
--- NOTE | 2020-12-03 20:25 | NUR ---
RT Notes pt refused HHN TX at this time. No resp distress/SOB noted.
[2020-12-03] MEDS: IV NS 0.9% 1,000 ML IV PRN (20:40)
[2020-12-03 20:43] VITALS: BP 123/83
[2020-12-04] MEDS: IV NS 0.9% 1,000 ML IV PRN ×2 (04:05→16:42)
[2020-12-04] MEDS: IPRATROPIUM NEB FS 0.5 MG/2.5 ML AMPUL.NEB NEB SCH ×6 (04:25→22:58)
[2020-12-04] MEDS: ALBUTEROL HALF STRENGTH 1.25 MG/3 ML VIAL.NEB NEB SCH ×6 (04:26→22:58)
[2020-12-04] MEDS: METRONIDAZOLE 500 MG TABLET PO SCH ×3 (05:46→21:12)
[2020-12-04] MEDS: BLOOD SUGAR DIAGNOSTIC 1 EACH STRIP IN SCH ×3 (05:53→17:14)
[2020-12-04] MEDS: INSULIN REGULAR, HUMAN 100 UNIT/ML 3 ML VIAL SQ PRN ×3 (05:55→17:13)
[2020-12-04 06:35] LABS: BASOPHILS % (AUTO) 1.1 % (0.0-2.0); EOSINOPHILS % (AUTO) 1.6 % (0.0-6.0); HEMATOCRIT 21 % (39-51); HEMOGLOBIN 7.2 g/dL (13.5-17.5); LYMPHOCYTES # (AUTO) 0.5 K/uL (0.8-4.8); LYMPHOCYTES % (AUTO) 32.8 % (20.0-44.0); MEAN CORPUSCULAR HGB CONC 34 g/dl (31.0-36.0); MEAN CORPUSCULAR VOLUME 85 fL (80-96); MONOCYTES % (AUTO) 1.7 % (2.0-12.0); NEUTROPHILS # (AUTO) 0.9 K/uL (1.8-8.9); NEUTROPHILS % (AUTO) 62.8 % (43.0-81.0); PLATELET COUNT (AUTO) 118 K/uL (150-450); RED BLOOD CELL COUNT(AUTO) 2.51 MIL/uL (4.5-6.0)
--- NOTE | 2020-12-04 06:46 | NUR ---
RN CLOSING NOTE PT AWAKE, A/OX3, ABLE TO VERBALIZE NEEDS. DENIES PAIN/DISCOMFORT AT THIS TIME. NO SOB. IV SITE: SOPHIA PICC LINE INTACT/PATENT, RUNNING NS @150ML/HR. F/C IN PLACE, DRAINING CLEAR YELLOW URINE. KEPT PT CLEAN AND DRY. NO ACUTE DISTRESS NOTED. SAFETY MEASURES MAINTAINED. ALL NEEDS ATTENDED TO.
[2020-12-04 07:05] LABS: CALCIUM, SERUM 6.8 mg/dL (8.5-10.1); CREATININE 1.3 mg/dL (0.6-1.3); MAGNESIUM 1.3 mg/dL (1.8-2.4); PHOSPHORUS 2.9 mg/dL (2.5-4.9); POTASSIUM 2.9 mmol/L (3.5-5.1)
--- NOTE | 2020-12-04 07:17 | NUR ---
MS RN OPENING NOTES RECEIVED PT AWAKE IN BED IN NO ACUTE SIGNS OF DISTRESS. A/O X3. ABLE TO VERBALIZE NEEDS, DENIES PAIN OR ANY DISCOMFORTS AT THIS TIME. ON ROOM AIR, RESPIRATIONS EVEN AND UNLABORED. SOPHIA TRIPLE LUMEN PICC LINE INTACT AND PATENT, IVF OF NS @150ML/HR INFUSING WELL. VELASQUEZ IN PLACE, DRAINING CLEAR YELLOW URINE OUTPUT VIA GRAVITY. SAFETY MEASURES IN PLACE: BED IN LOWEST LOCKED POSITION, S/R UP X2 AND CALL LIGHT WITHIN REACH. WILL CONTINUE TO MONITOR.
[2020-12-04 07:35] LABS: WHITE BLOOD COUNT (AUTO) 1.5 K/uL (4.3-11.0)
[2020-12-04] MEDS: PANTOPRAZOLE 40 MG TABLET.DR PO SCH (07:36)
[2020-12-04 08:00] VITALS: BP 131/80
[2020-12-04] MEDS ORDERED: LIDOCAINE 1% INJ 50 ML MDV IJ ONE (08:00)
--- NOTE | 2020-12-04 08:00 | NUR ---
RN NOTES RECEIVED CALL FROM ASSOCIATE THEATRE PROFESSOR SAAD LIANG THAT PT HAD CRITICAL LOW WBC 1.[address] DORANTES MADE AWARE AND ACKNOWLEDGED.
[2020-12-04] MEDS: CEFTRIAXONE 2 G in IV NS 0.9% 100 ML IV SCH (08:04)
[2020-12-04 09:26] LABS: BAND % (MANUAL) 5 % (0.0-5.0); LYMPHOCYTES % (MANUAL) 24 % (16-48); NEUTROPHILS % (MANUAL) 71 (42-76)
[2020-12-04] MEDS: POTASSIUM CHLORIDE 20 MEQ TAB.PRT.SR PO SCH ×3 (09:40→11:44)
[2020-12-04] MEDS: Magnesium 1GM/D5W 100ML PREMIX 100 ML IV SCH ×4 (09:40→12:46)
--- NOTE | 2020-12-04 11:57 | NUR ---
RN NOTES PT WITH LOW LEVEL POTASSIUM 2.9 TODAY, ADMINISTERED K-DUR 20 MEQ X 3 DOSES ORDERED.
--- NOTE | 2020-12-04 13:06 | NUR ---
RN NOTES PT WITH LOW LEVEL MAGNESIUM 1.3 TODAY. IV MAGNESIUM 1GM X 4 DOSES ADMINISTERED ORDERED.
--- NOTE | 2020-12-04 15:05 | NUR ---
RN NOTES DR MORTENSEN CAME AND REMOVED PT'S RIGHT FEMORAL HD CATH. APPLIED PRESSURE DRESSING. NO ACTIVE BLEEDING NOTED. WILL CONTINUE TO MONITOR.
[2020-12-04 16:00] VITALS: BP 126/70
--- NOTE | 2020-12-04 18:43 | NUR ---
MS RN CLOSING NOTES PT IN BED RESTING AND WATCHING TV AT THIS TIME. A/OX3. ABLE TO VERBALIZE NEEDS. FORGETFUL AT TIMES. ON ROOM AIR, TOLERATING WELL WITH NO SOB NOTED DURING THE DAY. SOPHIA PICC LINE INTACT AND PATENT, IVF OF NS @150ML/HR INFUSING WELL. VELASQUEZ IN PLACE, DRAINING CLEAR YELLOW URINE VIA GRAVITY, VELASQUEZ CARE DONE. ALL NEEDS AND CARE ATTENDED WELL. SAFETY MEASURES IN PLACED: BED IN LOWEST LOCKED POSITION, S/R U PX2 AND CALL LIGHT WITHIN REACH. WILL ENDORSE OLAF TO THE NEXT SHIFT NURSE.
--- NOTE | 2020-12-04 19:34 | NUR ---
MS RN OPENING NOTES PT WAS LAST SEEN AWAKE IN BED RESTING. PATIENT'S ALERT AND ORIENTEDX3 AND CAN BE FORGETFUL AT TIMES. PATIENT'S STABLE ON ROOM AIR. PATIENT HAS A SOPHIA PICC LINE AND AN IV ACCESS NOTED ON RFA GAUGE #22, WHICH IS INTACT, PATENT, AND FLUSHING WELL. VELSAQUEZ IN PLACE, DRAINING CLEAR YELLOW URINE VIA GRAVITY. PATIENT'S IN NO ACUTE DISTRESS AT THIS TIME. SAFETY MEASURES IN PLACE: BED IS LOCKED, BED ALARM ON, SIDE RAILS UPX3, AND CALL LIGHT WITHIN REACH. WILL CONTINUE TO MONITOR THE PATIENT.
[2020-12-04 20:00] VITALS: BP 142/70
--- NOTE | 2020-12-04 20:30 | NUR ---
MS HOGUE NOTES AT ABOUT 1930, PATIENT'S SOPHIA PICC LINE WAS PULLED OUT ABOUT 3 CM. THE CATHETER WAS INSERTED BACK IN ABOUT 3 CM USING STERILE TECHNIQUE. THE OLD DRESSING WAS REMOVED. A NEW DRESSING WAS PLACED TO PROTECT THE CATHETER SITE. CHEST XRAY WAS ORDERED TO CONFIRM PLACEMENT OF THE SOPHIA PICC LINE, RESULTS ARE PENDING.
--- NOTE | 2020-12-04 22:53 | NUR ---
RT Pt refused neb tx at this time. No SOB or respiratory distress noted.
--- NOTE | 2020-12-05 00:05 | NUR ---
MS RN NOTES PATIENT'S BLOOD JOCVS=586 MG/DL @ THIS TIME. WILL GIVE ORDERED 3 UNITS OF REGULAR INSULIN. WILL CONTINUE TO MONITOR THE PATIENT.
[2020-12-05] MEDS: INSULIN REGULAR, HUMAN 100 UNIT/ML 3 ML VIAL SQ PRN ×4 (00:11→17:29)
[2020-12-05] MEDS: BLOOD SUGAR DIAGNOSTIC 1 EACH STRIP IN SCH ×4 (00:12→17:04)
[2020-12-05] MEDS: IPRATROPIUM NEB FS 0.5 MG/2.5 ML AMPUL.NEB NEB SCH ×6 (03:21→23:30)
[2020-12-05] MEDS: ALBUTEROL HALF STRENGTH 1.25 MG/3 ML VIAL.NEB NEB SCH ×6 (03:21→23:30)
--- NOTE | 2020-12-05 03:21 | NUR ---
RT Pt refused TX at this time. No SOB or respiratory distress noted.
[2020-12-05] MEDS: METRONIDAZOLE 500 MG TABLET PO SCH ×3 (05:07→21:29)
--- NOTE | 2020-12-05 05:11 | NUR ---
MS RN NOTES PATIENT'S BLOOD SUGAR= 149 MG/DL @ THIS TIME. WILL GIVE ORDERED 2 UNITS OF REGULAR INSULIN. WILL CONTINUE TO MONITOR THE PATIENT.
[2020-12-05] MEDS: IV NS 0.9% 1,000 ML IV PRN (05:28)
[2020-12-05 06:35] LABS: BASOPHILS % (AUTO) 1.1 % (0.0-2.0); EOSINOPHILS % (AUTO) 1.3 % (0.0-6.0); HEMATOCRIT 22 % (39-51); HEMOGLOBIN 7.4 g/dL (13.5-17.5); LYMPHOCYTES # (AUTO) 0.4 K/uL (0.8-4.8); LYMPHOCYTES % (AUTO) 32.2 % (20.0-44.0); MEAN CORPUSCULAR HGB CONC 33 g/dl (31.0-36.0); MEAN CORPUSCULAR VOLUME 85 fL (80-96); MONOCYTES % (AUTO) 2.5 % (2.0-12.0); NEUTROPHILS # (AUTO) 0.9 K/uL (1.8-8.9); NEUTROPHILS % (AUTO) 62.9 % (43.0-81.0); PLATELET COUNT (AUTO) 125 K/uL (150-450); RED BLOOD CELL COUNT(AUTO) 2.61 MIL/uL (4.5-6.0)
--- NOTE | 2020-12-05 07:06 | NUR ---
MS RN CLOSING NOTES PT WAS LAST SEEN SLEEPING IN BED. PATIENT'S ALERT AND ORIENTED X2-3 AND CAN BE FORGETFUL AT TIMES. PATIENT'S STABLE ON ROOM AIR. PATIENT HAS A SOPHIA PICC LINE AND AN IV ACCESS NOTED ON RFA GAUGE #22, WHICH IS INTACT, PATENT, AND FLUSHING WELL. VELASQUEZ IN PLACE, DRAINING CLEAR YELLOW URINE VIA GRAVITY. PATIENT'S IN NO ACUTE DISTRESS AT THIS TIME. SAFETY MEASURES IN PLACE: BED IS LOCKED, BED ALARM ON, SIDE RAILS UPX3, AND CALL LIGHT WITHIN REACH. WILL ENDORSE CARE TO THE DAY SHIFT NURSE.
[2020-12-05 07:20] LABS: CALCIUM, SERUM 6.9 mg/dL (8.5-10.1); CREATININE 1.2 mg/dL (0.6-1.3); MAGNESIUM 1.6 mg/dL (1.8-2.4); PHOSPHORUS 2.5 mg/dL (2.5-4.9)
--- NOTE | 2020-12-05 07:35 | NUR ---
Patient seen comfortably lying in bed, no SOB, no apparent distress noted, respirations even and unlabored, denies any pain or discomfort at this time. Call light left within reach, safety precautions in place, brakes locked, side rails up X 2, will monitor closely for any changes.
--- NOTE | 2020-12-05 07:35 | NUR ---
Received a call from lab (spoke to Duarte) regarding patient's platelet level which is 1.4, MD Dr. Neumann is present at the unit and is made aware and acknowledged the results. No apparent distress noted with patient, no s/s of bleeding, no nosebleeds, no bleeding gums, no hematuria, no unusual bruising at this time, will monitor closely for any changes.
[2020-12-05 07:40] LABS: WHITE BLOOD COUNT (AUTO) 1.4 K/uL (4.3-11.0)
--- NOTE | 2020-12-05 07:41 | NUR ---
Received a call from lab (spoke to July) regarding patient's potassium level which is 2.8, MD Dr. Neumann is present at the unit and is made aware and acknowledged the results. No apparent distress noted with patient, denies palpitations, no headache, no dizziness, will monitor closely for any changes.
[2020-12-05 07:50] LABS: POTASSIUM 2.8 mmol/L (3.5-5.1)
[2020-12-05 08:00] VITALS: BP 143/83
[2020-12-05] MEDS: PANTOPRAZOLE 40 MG TABLET.DR PO SCH (08:02)
[2020-12-05] MEDS: CEFTRIAXONE 2 G in IV NS 0.9% 100 ML IV SCH (08:19)
--- NOTE | 2020-12-05 09:06 | NUR ---
WOUND CARE CONSULT/FOLLOW UP: PT SEEN FOR RE-EVALUATION OF SACRAL DEEP TISSUE INJURY. SACRAL DTI IS INTACT AT THIS TIME, NO ERYTHEMA, DRAINAGE OR TENDERNESS NOTED. COLOR NOTED TO BE PURPLE AND PINK. WOUND TREATMENT ORDERS UPDATED AND DISCUSSED WITH NURSING STAFF. PT ENCOURAGED TO TURN AND REPOSITION IN BED. PT STATED UNDERSTANDING AND WILLINGNESS TO COMPLY. PT IS GETTING UP WITH P.T. USING WALKER. ALL SKIN PROTECTION MEASURES IN PLACE AND DISCUSSED WITH NURSING STAFF. PT IS ON AUGUSTO ISOFLEX LOW AIRSS BED. IN AGREEMENT WITH PLAN OF CARE. Addendum: 12/05/20 at 0908 by KELSY HAYES WNDNU Amended: Links added.
[2020-12-05] MEDS: POTASSIUM CL. PREMIX PERIPHER. 50 ML IV SCH ×7 (09:55→15:46)
[2020-12-05] MEDS: Magnesium 1GM/D5W 100ML PREMIX 100 ML IV SCH ×2 (09:55→11:32)
[2020-12-05 10:21] LABS: EOSINOPHILS % (MANUAL) 2 % (0-4); LYMPHOCYTES % (MANUAL) 33 % (16-48); MONOCYTES % (MANUAL) 2 % (0-11.0); NEUTROPHILS % (MANUAL) 63 (42-76)
--- NOTE | 2020-12-05 13:30 | NUR ---
Patient S/P bone marrow biopsy by Dr. Brown, procedure done at bedside. patient had signed the consent for procedure. Patient in bed, no apparent distress noted, Dr. Brown explained the procedure and patient verbalized understanding. Bone marrow biopsy done at the left flank area, no excessive bleeding, no unusual odor, no s/s of infection. Area covered with dry dressing, patient tolerated procedure, will monitor closely for any changes.
[2020-12-05] MEDS: GLUCERNA SHAKE 237 ML CAN PO SCH ×2 (13:40→17:05)
[2020-12-05 14:47] LABS: BASOPHILS % (AUTO) 0.5 % (0.0-2.0); EOSINOPHILS % (AUTO) 2.2 % (0.0-6.0); HEMATOCRIT 23 % (39-51); HEMOGLOBIN 7.5 g/dL (13.5-17.5); LYMPHOCYTES # (AUTO) 0.5 K/uL (0.8-4.8); LYMPHOCYTES % (AUTO) 32.5 % (20.0-44.0); MEAN CORPUSCULAR HGB CONC 33 g/dl (31.0-36.0); MEAN CORPUSCULAR VOLUME 86 fL (80-96); MONOCYTES % (AUTO) 2.2 % (2.0-12.0); NEUTROPHILS # (AUTO) 0.9 K/uL (1.8-8.9); NEUTROPHILS % (AUTO) 62.6 % (43.0-81.0); PLATELET COUNT (AUTO) 142 K/uL (150-450); RED BLOOD CELL COUNT(AUTO) 2.68 MIL/uL (4.5-6.0)
--- NOTE | 2020-12-05 14:50 | NUR ---
Received a call from lab (spoke to Bobbi) regarding patient's WBC level at 1.4 and hemoglobin level at 7.5 and hematocrit level at 23. Dr. Neumann made aware and acknowledged the results. No apparent distress noted with patient, afebrile, no s/s of bleeding, denies palpitations, no headache, no dizziness, will monitor closely for any changes.
[2020-12-05 14:53] LABS: WHITE BLOOD COUNT (AUTO) 1.4 K/uL (4.3-11.0)
[2020-12-05 16:00] VITALS: BP 139/80
--- NOTE | 2020-12-05 18:36 | NUR ---
RN CLOSING NOTES Patient lying in bed, AO X 2-3, no SOB, breathing even and unlabored, no apparent distress noted. All medications given per MD order, tolerating well. No hypo/hyperglycemia noted, insulin given per sliding scale, tolerated well. Stein catheter draining clear yellowish urine free from any sediments, no hematuria, and no unusual odor noted in urine, denies any bladder pain or discomfort, bladder non distended during shift. Patient S/P bone marrow biopsy today, dressings at site intact, no s/s of bleeding, no s/s of infection, patient tolerated procedure well, has minimal pain at site but preferred not to take pain medication at this time. All needs attended, kept clean and dry, call light left within reach, safety precautions in place, brakes locked, side rails up X 2, will endorse to next shift for continuity of care.
--- NOTE | 2020-12-05 19:40 | NUR ---
MS RN OPENING NOTES PT WAS LAST AWAKE IN BED RESTING. PATIENT'S ALERT AND ORIENTED X2-3 AND CAN BE FORGETFUL AT TIMES. PATIENT'S STABLE ON ROOM AIR. PATIENT HAS A SOPHIA PICC LINE AND AN IV ACCESS NOTED ON RFA GAUGE #22, WHICH IS INTACT, PATENT, AND FLUSHING WELL. VELASQUEZ IN PLACE, DRAINING CLEAR YELLOW URINE VIA GRAVITY. PATIENT'S IN NO ACUTE DISTRESS AT THIS TIME. SAFETY MEASURES IN PLACE: BED IS LOCKED, BED ALARM ON, SIDE RAILS UPX3, AND CALL LIGHT WITHIN REACH. WILL CONTINUE TO MONITOR THE PATIENT.
[2020-12-05 21:01] VITALS: BP 132/81
--- NOTE | 2020-12-05 23:46 | NUR ---
RT NOTE PT REFUSED TX AT THIS TIME. NO RESPIRATORY DISTRESS NOTED. LENNIE CARLOS NOTIFIED.
[2020-12-06] VITALS (8 sets, daily range): BP systolic 112–144; BP diastolic 70–85
--- NOTE | 2020-12-06 00:10 | NUR ---
MS RN NOTES PATIENT'S BLOOD SUGAR= 179 MG/DL @ THIS TIME. WILL GIVE ORDERED 3 UNITS OF REGULAR INSULIN. WILL CONTINUE TO MONITOR THE PATIENT.
[2020-12-06] MEDS: INSULIN REGULAR, HUMAN 100 UNIT/ML 3 ML VIAL SQ PRN ×4 (00:18→17:37)
[2020-12-06] MEDS: BLOOD SUGAR DIAGNOSTIC 1 EACH STRIP IN SCH ×4 (00:34→17:39)
[2020-12-06] MEDS: IPRATROPIUM NEB FS 0.5 MG/2.5 ML AMPUL.NEB NEB SCH ×6 (03:30→23:30)
[2020-12-06] MEDS: ALBUTEROL HALF STRENGTH 1.25 MG/3 ML VIAL.NEB NEB SCH ×6 (03:30→23:30)
[2020-12-06] MEDS: IV NS 0.9% 1,000 ML IV PRN ×2 (03:40→15:38)
--- NOTE | 2020-12-06 04:02 | NUR ---
RT NOTE PATIENT REFUSED HHX TX AT THIS TIME. NO SIGNS OF RESPIRATORY DISTRESS NOTED. PRIMARY RN IS NOTIFIED.
--- NOTE | 2020-12-06 05:07 | NUR ---
MS RN NOTES PATIENT'S BLOOD SUGAR= 152 MG/DL @ THIS TIME. WILL GIVE ORDERED 2 UNITS OF REGULAR INSULIN. WILL CONTINUE TO MONITOR THE PATIENT.
[2020-12-06] MEDS: METRONIDAZOLE 500 MG TABLET PO SCH ×3 (05:14→20:56)
[2020-12-06 07:16] LABS: BASOPHILS % (AUTO) 1.6 % (0.0-2.0); EOSINOPHILS % (AUTO) 1.6 % (0.0-6.0); LYMPHOCYTES % (AUTO) 31.9 % (20.0-44.0); MEAN CORPUSCULAR HGB CONC 33 g/dl (31.0-36.0); MEAN CORPUSCULAR VOLUME 85 fL (80-96); MONOCYTES # (AUTO) 0.1 K/uL (0.1-1.30); MONOCYTES % (AUTO) 2.7 % (2.0-12.0); NEUTROPHILS # (AUTO) 1.9 K/uL (1.8-8.9); NEUTROPHILS % (AUTO) 62.2 % (43.0-81.0); PLATELET COUNT (AUTO) 139 K/uL (150-450); RED BLOOD CELL COUNT(AUTO) 2.34 MIL/uL (4.5-6.0)
[2020-12-06 07:17] LABS: CALCIUM, SERUM 6.6 mg/dL (8.5-10.1); CREATININE 1.1 mg/dL (0.6-1.3); MAGNESIUM 1.4 mg/dL (1.8-2.4); POTASSIUM 3.2 mmol/L (3.5-5.1)
--- NOTE | 2020-12-06 07:28 | NUR ---
Patient seen comfortably lying in bed, no SOB, breathing even and unlabored, no apparent distress noted, denies any pain or discomfort at this time. Call light left within reach, safety precautions in place, brakes locked, side rails up X 2, will monitor closely for any changes.
[2020-12-06 07:30] LABS: HEMOGLOBIN 6.7 g/dL (13.5-17.5)
--- NOTE | 2020-12-06 07:30 | NUR ---
MS RN OPENING NOTES PT WAS LAST SEEN AWAKE IN BED RESTING. PATIENT'S ALERT AND ORIENTED X2-3 AND CAN BE FORGETFUL AT TIMES. PATIENT'S STABLE ON ROOM AIR. PATIENT HAS A SOPHIA PICC LINE AND AN IV ACCESS NOTED ON RFA GAUGE #22, WHICH IS INTACT, PATENT, AND FLUSHING WELL. VELASQUEZ IN PLACE, DRAINING CLEAR YELLOW URINE VIA GRAVITY. PATIENT'S IN NO ACUTE DISTRESS AT THIS TIME. SAFETY MEASURES IN PLACE: BED IS LOCKED, BED ALARM ON, SIDE RAILS UPX3, AND CALL LIGHT WITHIN REACH. WILL ENDORSE CARE TO THE DAY SHIFT NURSE.
--- NOTE | 2020-12-06 07:30 | NUR ---
Received a call from lab (spoke to July) regarding patient's Hgb level which is at 6.7, Dr. Neumann made aware and acknowledged the results. No apparent distress noted with patient, afebrile, no s/s of bleeding, denies palpitations, no headache, no dizziness, will monitor closely for any changes.
[2020-12-06 07:31] LABS: HEMATOCRIT 20 % (39-51)
--- NOTE | 2020-12-06 07:50 | NUR ---
Patient seen and examined by primary MD. MD reviewed chest xray result for PICC line verification of placement, per MD mendez to use PICC line.
[2020-12-06] MEDS: PANTOPRAZOLE 40 MG TABLET.DR PO SCH (08:44)
[2020-12-06] MEDS: GLUCERNA SHAKE 237 ML CAN PO SCH ×2 (08:45→16:58)
[2020-12-06] MEDS: CEFTRIAXONE 2 G in IV NS 0.9% 100 ML IV SCH (08:45)
[2020-12-06 09:27] LABS: EOSINOPHILS % (MANUAL) 1 % (0-4); LYMPHOCYTES % (MANUAL) 25 % (16-48); MONOCYTES % (MANUAL) 4 % (0-11.0); NEUTROPHILS % (MANUAL) 70 (42-76)
[2020-12-06] MEDS: POTASSIUM CHLORIDE 20 MEQ TAB.PRT.SR PO SCH ×2 (09:57→11:00)
[2020-12-06] MEDS ORDERED: ACETAMINOPHEN 325 MG TABLET PO ONE (11:30)
[2020-12-06] MEDS ORDERED: diphenhydrAMINE HCL 50 MG/ML VIAL IV ONE (11:30)
[2020-12-06] MEDS: Magnesium 1GM/D5W 100ML PREMIX 100 ML IV SCH ×4 (12:25→15:10)
--- NOTE | 2020-12-06 19:39 | NUR ---
RN CLOSING NOTES Patient lying in bed, AO X 2-3, no SOB, breathing even and unlabored, no apparent distress noted. All medications given per MD order, tolerating well. No hypo/hyperglycemia noted, insulin given per sliding scale, tolerated well. Patient had blood transfusion today, tolerated procedure well, no adverse reactions noted, Dr. Brown EQUIPMENT SERVICE ENGINEER [facility] made aware and agreed with the plan for blood transfusion. No Shortness of breath, no itching, no flushing, vitals remained within normal limits during and after blood transfusion. Stein catheter draining clear yellowish urine free from any sediments, no hematuria, and no unusual odor noted in urine, denies any bladder pain or discomfort, bladder non distended during shift. All needs attended, kept clean and dry, call light left within reach, safety precautions in place, brakes locked, side rails up X 2, will endorse to next shift for continuity of care.
--- NOTE | 2020-12-06 19:45 | NUR ---
MS RN NOTES RECEIVED ON BED A/O X3-4,BREATHING REGULAR,NOT IN ANY FORM OF DISTRESS,O2 SAT 96% ON ROOM AIR,REFUSED BREATHING TREATMENT.IVF NS AT 150ML/HR RATE INFUSING VIA SOPHIA PICC LINE VIA IV PUMP,SCD IN USED FOR DVT PROPHYLAXIS,,ASSIST TO BEDSIDE COMMODE.FALL PRECAUTION OBSERVED,BED ALARM,CALL LIGHT IN REACH,NEEDS ANTICIPATED.
--- NOTE | 2020-12-06 20:05 | NUR ---
pt refused breathing tx. spo2 94% @ room air, no respiratory distress noted at this time. rn kera notified
--- NOTE | 2020-12-06 22:00 | NUR ---
MS RN NOTES ACCU-CHECK BLOOD SUGAR CHECK 145,COVERED WITH HUMULIN R 2 UNITS PER SLIDING SCALE.IVF INFUSINH WELL ON RIGHT LOWER ARM SALINE LOCK VIA IC PUMP.
[2020-12-07] MEDS: BLOOD SUGAR DIAGNOSTIC 1 EACH STRIP IN SCH ×4 (00:08→17:15)
[2020-12-07] MEDS: INSULIN REGULAR, HUMAN 100 UNIT/ML 3 ML VIAL SQ PRN ×3 (00:16→17:14)
[2020-12-07] MEDS: IV NS 0.9% 1,000 ML IV PRN ×2 (00:23→07:47)
--- NOTE | 2020-12-07 02:00 | NUR ---
MS RN NOTES AWAKE,WATCHING TV PROGRAM.
[2020-12-07] MEDS: IPRATROPIUM NEB FS 0.5 MG/2.5 ML AMPUL.NEB NEB SCH ×6 (03:30→23:17)
[2020-12-07] MEDS: ALBUTEROL HALF STRENGTH 1.25 MG/3 ML VIAL.NEB NEB SCH ×6 (03:30→23:18)
[2020-12-07] MEDS: METRONIDAZOLE 500 MG TABLET PO SCH ×3 (05:03→20:43)
--- NOTE | 2020-12-07 05:30 | NUR ---
MS RN NOTES ACCU-CHECK BLOOD SUGAR CHECK 122,NO INSULIN COVERAGE,ASK FOR SNACKS THIS TIME.
--- NOTE | 2020-12-07 06:22 | NUR ---
MS RN NOTES FAIRLY RESTED AT NIGHT,IVF INFUSING,SITE REMAINS PATENT,NO EPISODE OF SOB,VELASQUEZ CATH DRAINS WELL,ASSIST WITH ADL'S,NO FALL,NO INJURY,IN NO ACUTE DISTRESS.WILL ENDORSE TO DAY NURSE FOR OLAF.
[2020-12-07 07:11] LABS: BASOPHILS % (AUTO) 1.2 % (0.0-2.0); HEMATOCRIT 22 % (39-51); HEMOGLOBIN 7.4 g/dL (13.5-17.5); LYMPHOCYTES # (AUTO) 0.5 K/uL (0.8-4.8); LYMPHOCYTES % (AUTO) 27.5 % (20.0-44.0); MEAN CORPUSCULAR HGB CONC 34 g/dl (31.0-36.0); MEAN CORPUSCULAR VOLUME 86 fL (80-96); MONOCYTES # (AUTO) 0.1 K/uL (0.1-1.30); MONOCYTES % (AUTO) 4.2 % (2.0-12.0); NEUTROPHILS # (AUTO) 1.3 K/uL (1.8-8.9); NEUTROPHILS % (AUTO) 65.1 % (43.0-81.0); PLATELET COUNT (AUTO) 143 K/uL (150-450); RED BLOOD CELL COUNT(AUTO) 2.54 MIL/uL (4.5-6.0)
--- NOTE | 2020-12-07 07:29 | NUR ---
RN OPENING NOTES Patient seen comfortably lying in bed, no apparent distress noted, denies any pain or discomfort at this time, no SOB, breathing even and unlabored. Safety precautions in place, call light left within reach, brakes locked, side rails up X 2, will monitor closely for any changes.
[2020-12-07 07:32] LABS: CALCIUM, SERUM 6.8 mg/dL (8.5-10.1); MAGNESIUM 1.4 mg/dL (1.8-2.4); POTASSIUM 2.9 mmol/L (3.5-5.1)
[2020-12-07] MEDS: PANTOPRAZOLE 40 MG TABLET.DR PO SCH (07:46)
[2020-12-07] MEDS: GLUCERNA SHAKE 237 ML CAN PO SCH ×2 (07:47→16:49)
[2020-12-07 08:48] VITALS: BP 138/81
[2020-12-07] MEDS: CEFTRIAXONE 2 G in IV NS 0.9% 100 ML IV SCH (08:50)
[2020-12-07] MEDS: Magnesium 1GM/D5W 100ML PREMIX 100 ML IV SCH ×2 (11:33→12:41)
[2020-12-07] MEDS: POTASSIUM CHLORIDE 20 MEQ TAB.PRT.SR PO SCH ×3 (11:33→13:38)
[2020-12-07] MEDS: IV LR 1000 ML 1,000 ML IV SCH (13:01)
[2020-12-07] MEDS: EPOETIN ALFA-EPBX 10,000 UNIT/ML VIAL SQ SCH (14:39)
[2020-12-07 16:07] VITALS: BP 138/77
--- NOTE | 2020-12-07 18:34 | NUR ---
RN CLOSING NOTES Patient lying in bed, AO X 2-3, with episodes of forgetfulness, reorientation provided as needed. Respirations even and unlabored, no SOB, no apparent distress noted. All medications given per MD order, tolerating well. Stein catheter draining clear yellowish urine free from any sediments, no hematuria, and no unusual odor noted in urine, denies any bladder pain or discomfort, bladder non distended during shift. No hypo/hyperglycemia noted, insulin given per sliding scale, tolerated well. Magnesium level for today is 1.4 and Potassium level is 2.9, MD made aware with new orders for replacements, medications given to patient, tolerated well, no adverse effect noted at this time. Call light left within reach, kept clean and dry, all needs attended, safety precautions in place, brakes locked, side rails up X 2, will endorse to next shift for continuity of care.
--- NOTE | 2020-12-07 19:30 | NUR ---
MS RN NOTES RECEIVED ON BED SLEEPING,BREATHING EASY NO SOB,O2 SAT 97% ON ROOM AIR,PRESENT IVF LR AT 75ML/HR RATE INFUSING ON LEFT UPPER ARM PICC LINE,ASSIST WITH ADL'S,VELASQUEZ CATH IN PLACE DRAINING YELLOWISH OUTPUT.MARIO PAIN DISCOMFORT,CALL LIGHT IN REACH,NEEDS ANTICIPATED.
[2020-12-07 20:00] VITALS: BP 131/71
--- NOTE | 2020-12-07 20:15 | NUR ---
pt refused breathing tx. spo2 95%@room air. no sob or respiratory distress noted at this time. rn kera notified
--- NOTE | 2020-12-07 22:00 | NUR ---
MS RN NOTES ACCU-CHECK BLOOD SUGAR CHECK 170,COVERED WITH HUMULIN R 3 UNITS PER SLIDING SCALE.
[2020-12-08] MEDS: INSULIN REGULAR, HUMAN 100 UNIT/ML 3 ML VIAL SQ PRN ×4 (00:02→23:53)
[2020-12-08] MEDS: ALBUTEROL HALF STRENGTH 1.25 MG/3 ML VIAL.NEB NEB SCH ×6 (03:30→23:30)
[2020-12-08] MEDS: IPRATROPIUM NEB FS 0.5 MG/2.5 ML AMPUL.NEB NEB SCH ×6 (03:30→23:30)
[2020-12-08] MEDS: IV LR 1000 ML 1,000 ML IV SCH ×2 (03:35→16:23)
[2020-12-08] MEDS: METRONIDAZOLE 500 MG TABLET PO SCH ×3 (05:24→20:37)
[2020-12-08] MEDS: BLOOD SUGAR DIAGNOSTIC 1 EACH STRIP IN SCH ×5 (05:25→23:49)
--- NOTE | 2020-12-08 06:28 | NUR ---
MS RN NOTES SLEPT WELL AT NIGHT,NO SOB,DENIES PAIN DISCOMFORTS,VELASQUEZ CATH DRAINS WELL,IVF INFUSING WELL,SITE PATENT LEFT UPPER ARM PICC LINE,IN NO ACUTE DISTRESS.WILL ENDORSE TO DAY NURSE FOR OLAF.
[2020-12-08 06:31] LABS: BASOPHILS % (AUTO) 1.5 % (0.0-2.0); EOSINOPHILS % (AUTO) 2.1 % (0.0-6.0); HEMATOCRIT 22 % (39-51); HEMOGLOBIN 7.3 g/dL (13.5-17.5); LYMPHOCYTES # (AUTO) 0.8 K/uL (0.8-4.8); LYMPHOCYTES % (AUTO) 31.8 % (20.0-44.0); MEAN CORPUSCULAR HGB CONC 33 g/dl (31.0-36.0); MEAN CORPUSCULAR VOLUME 85 fL (80-96); MONOCYTES # (AUTO) 0.1 K/uL (0.1-1.30); MONOCYTES % (AUTO) 4.2 % (2.0-12.0); NEUTROPHILS # (AUTO) 1.5 K/uL (1.8-8.9); NEUTROPHILS % (AUTO) 60.4 % (43.0-81.0); PLATELET COUNT (AUTO) 160 K/uL (150-450); RED BLOOD CELL COUNT(AUTO) 2.55 MIL/uL (4.5-6.0); WHITE BLOOD COUNT (AUTO) 2.5 K/uL (4.3-11.0)
[2020-12-08 07:00] LABS: CALCIUM, SERUM 7.3 mg/dL (8.5-10.1); CREATININE 0.9 mg/dL (0.6-1.3); MAGNESIUM 1.4 mg/dL (1.8-2.4); POTASSIUM 3.2 mmol/L (3.5-5.1)
[2020-12-08] MEDS ORDERED: METR500T PO (07:23)
[2020-12-08] MEDS ORDERED: EPOE1000 SQ (07:23)
[2020-12-08] MEDS ORDERED: CEFT2VIA14 IV (07:23)
--- NOTE | 2020-12-08 07:36 | NUR ---
MS/RN OPENING NOTES RECEIVED PATIENT ON BED ALERT AND ORIENTED X4, ABLE TO MAKE NEEDS KNOWN. ON ROOM AIR, NO DISTRESS NOTED AT THIS TIME. IV ACCESS ON LEFT UPPER ARM PICC LINE WITH A RUNNING LR @75 CC/HR. VELASQUEZ CATH IN PLACE DRAINING TO A CLEAR YELLOW OUTPUT. SAFETY PRECAUTIONS IN PLACED: BED LOCKED ON LOWEST POSITION, SIDE RAILS UPX2, CALL LIGHT WITHIN EASY REACH. WILL CONTINUE TO MONITOR PATIENT.
--- NOTE | 2020-12-08 08:02 | NUR ---
RT NOTE PT DIFFERED TX PER PT REQUEST. NO SOB NOTED AT THIS TIME. RN DUSTY TO BE NOTIFIED.
[2020-12-08] MEDS: PANTOPRAZOLE 40 MG TABLET.DR PO SCH (08:30)
[2020-12-08] MEDS: Magnesium 1GM/D5W 100ML PREMIX 100 ML IV SCH ×4 (08:31→13:08)
[2020-12-08] MEDS: POTASSIUM CL. PREMIX PERIPHER. 50 ML IV SCH ×4 (08:31→13:08)
[2020-12-08] MEDS: GLUCERNA SHAKE 237 ML CAN PO SCH ×2 (08:32→17:23)
[2020-12-08] MEDS: CEFTRIAXONE 2 G in IV NS 0.9% 100 ML IV SCH (10:00)
--- NOTE | 2020-12-08 11:40 | NUR ---
RT NOTE TX DIFFERED PER PT REQUEST. NO SOB NOTED AT THIS TIME. LENNIE MANTILLA.
--- NOTE | 2020-12-08 18:55 | NUR ---
MS/RN CLOSING NOTES PATIENT IN BED ALERT AND ORIENTED X4, ABLE TO MAKE NEEDS KNOWN. ON ROOM AIR, NO DISTRESS NOTED AT THIS TIME. IV ACCESS ON LEFT UPPER ARM PICC LINE WITH A RUNNING LR @75 CC/HR. VELASQUEZ CATH IN PLACE DRAINING TO A CLEAR YELLOW OUTPUT. SAFETY PRECAUTIONS IN PLACED: BED LOCKED ON LOWEST POSITION, SIDE RAILS UPX2, CALL LIGHT WITHIN EASY REACH. WILL ENDORSE TO THE NEXT SHIFT FOR OLAF.
--- NOTE | 2020-12-08 19:00 | NUR ---
MS RN OPENING NOTE RECEIVED PT IN BED, RESTING A/O X4, PT STABLE ON ROOM AIR. NO S/S OF RESPIRATORY DISTRESS. NO C/O PAIN AT THIS TIME. IV ACCESS IN LEFT UPPER ARM PICC LINE. LR @75ML/HR IV IS INTACT, PATENT, AND FLUSHING WELL. VELASQUEZ CATHETER IN PLACE. SAFETY MEASURES MAINTAINED AT ALL TIMES. BED IN LOWEST LOCKED POSITION, HOB ELEVATED, SIDE RAILS UP X2. CALL LIGHT AND TABLE WITHIN REACH. WILL CONTINUE WITH PLAN OF CARE.
--- NOTE | 2020-12-08 19:54 | NUR ---
PT REFUSED BREATHING TREATMENT AT THIS TIME, REPORTED BY RT
[2020-12-08 20:00] VITALS: BP 127/84
--- NOTE | 2020-12-08 20:05 | NUR ---
RT pt refused neb tx. notified rosana lilly
[2020-12-09] MEDS: ALBUTEROL HALF STRENGTH 1.25 MG/3 ML VIAL.NEB NEB SCH ×4 (03:33→15:30)
[2020-12-09] MEDS: IPRATROPIUM NEB FS 0.5 MG/2.5 ML AMPUL.NEB NEB SCH ×4 (03:33→15:30)
[2020-12-09] MEDS: METRONIDAZOLE 500 MG TABLET PO SCH ×2 (05:47→12:10)
[2020-12-09] MEDS: IV LR 1000 ML 1,000 ML IV SCH (05:48)
--- NOTE | 2020-12-09 06:00 | NUR ---
MS RN CLOSING NOTE PT AWAKE AND RESTING IN BED, STABLE ON ROOM AIR. PT REMAINED STABLE THROUGHOUT SHIFT. ALL NEEDS, MEDICATIONS, AND CARE ADMINISTERED ANTICIPATED PER ORDER; PAIN CONTROL ADMINISTERED PER ORDER. VELASQUEZ CATHETER DRAINING CLEAR, YELLOW URINE. SAFETY PRECAUTIONS IN PLACE AND MAINTAINED AT ALL TIMES. BED IN LOWEST, LOCKED POSITION, HOB ELEVATED, SIDE RAILS UP X2. CALL LIGHT AND TABLE WITHIN REACH. WILL ENDORSE TO AM SHIFT NURSE FOR OLAF.
[2020-12-09] MEDS: INSULIN REGULAR, HUMAN 100 UNIT/ML 3 ML VIAL SQ PRN ×2 (06:19→11:54)
[2020-12-09] MEDS: BLOOD SUGAR DIAGNOSTIC 1 EACH STRIP IN SCH ×3 (06:21→17:11)
[2020-12-09 06:51] LABS: BASOPHILS % (AUTO) 0.8 % (0.0-2.0); EOSINOPHILS % (AUTO) 2.4 % (0.0-6.0); HEMATOCRIT 24 % (39-51); HEMOGLOBIN 7.9 g/dL (13.5-17.5); LYMPHOCYTES # (AUTO) 0.8 K/uL (0.8-4.8); LYMPHOCYTES % (AUTO) 27.2 % (20.0-44.0); MEAN CORPUSCULAR HGB CONC 33 g/dl (31.0-36.0); MEAN CORPUSCULAR VOLUME 87 fL (80-96); MONOCYTES # (AUTO) 0.2 K/uL (0.1-1.30); MONOCYTES % (AUTO) 6.1 % (2.0-12.0); NEUTROPHILS # (AUTO) 1.8 K/uL (1.8-8.9); NEUTROPHILS % (AUTO) 63.5 % (43.0-81.0); PLATELET COUNT (AUTO) 190 K/uL (150-450); RED BLOOD CELL COUNT(AUTO) 2.71 MIL/uL (4.5-6.0); WHITE BLOOD COUNT (AUTO) 2.8 K/uL (4.3-11.0)
--- NOTE | 2020-12-09 07:49 | NUR ---
MS RN OPENING NOTES RECEIVED PATIENT IN BED, AWAKE, A/O X4. PATIENT ON ROOM AIR; BREATHING EVEN AND UNLABORED AT THIS TIME, NO SOB NOTED. NO COMPLAINS OF PAIN AT THIS MOMENT. SOPHIA PICC PRESENT AND INTACT RUNNING LR @ 75 MLS/HR. VELASQUEZ CATH PRESENT DRAINING CLEAR YELLOW URINE. SAFETY PRECAUTIONS IN PLACE; BED IN LOW POSITION AND LOCKED, RAILS UP X2, CALL LIGHT WITHIN REACH. WILL CONTINUE TO MONITOR PATIENT.
--- NOTE | 2020-12-09 07:53 | NUR ---
RT NOTE TX DIFFERED PER PT REQUEST. NO SOB NOTED AT THIS TIME. LENNIE CHURCHILL WILL BE NOTIFIED.
[2020-12-09 08:00] VITALS: BP 134/79
[2020-12-09] MEDS: GLUCERNA SHAKE 237 ML CAN PO SCH ×2 (08:21→16:20)
[2020-12-09] MEDS: PANTOPRAZOLE 40 MG TABLET.DR PO SCH (08:21)
[2020-12-09] MEDS: CEFTRIAXONE 2 G in IV NS 0.9% 100 ML IV SCH (08:22)
[2020-12-09 09:18] LABS: BAND % (MANUAL) 2 % (0.0-5.0); EOSINOPHILS % (MANUAL) 2 % (0-4); LYMPHOCYTES % (MANUAL) 28 % (16-48); MONOCYTES % (MANUAL) 4 % (0-11.0); NEUTROPHILS % (MANUAL) 64 (42-76)
--- NOTE | 2020-12-09 11:59 | NUR ---
RT NOTE TX DIFFERED PER PT REQUEST. NO SOB NOTED AT THIS TIME. LENNIE CHURCHILL WILL BE NOTIFIED.
--- NOTE | 2020-12-09 15:56 | NUR ---
RT NOTE TX DIFFERED PER PT REQUEST. NO SOB NOTED AT THIS TIME. LENNIE CHURCHILL WILL BE NOTIFIED.
[2020-12-09 16:00] VITALS: BP 132/90
--- NOTE | 2020-12-09 18:29 | NUR ---
MS INFORMATION CLERK BROKERAGE NOTES PATIENT DISCHARGED AND TRANSFERRED TO [facility] FOR HIGHER LEVEL OF CARE. PATIENT A/O X4 ABLE TO MAKE NEEDS KNOWN. ALL DISCHARGE PAPERWORK READY AND SIGNED BY PATIENT. PATIENT HAD NO BELONGINGS. PATIENT LEFT WITH A VELASQUEZ AND A SOPHIA PICC. CALLED [place] AND GAVE REPORT TO FLORIDALMA. WRISTBAND REMOVED AND R HAND IV REMOVED WELL. PATIENT LEFT THE UNIT VIA GURNEY ACCOMPANIED BY 2 correctional officer captain AT [id number]
== END 2020-12-09 18:18 | DRG 871 ==
LOC: ER 12:29 → TELE1 21:55 → TELE-TD 22:10 → ICU 11-24 00:21 → MED 11-28 18:51
PROVIDERS: ATTEND Family Medicine
PROC: 06HY33Z Insertion of Infusion Device into Lower Vein, Percutaneous Approach (ICD-10-PCS; principal; 2020-11-24)
PROC: 05H633Z Insertion of Infusion Device into Left Subclavian Vein, Percutaneous Approach (ICD-10-PCS; 2020-11-24)
PROC: B547ZZA Ultrasonography of Left Subclavian Vein, Guidance (ICD-10-PCS; 2020-11-24)
PROC: 30233N1 Transfusion of Nonautologous Red Blood Cells into Peripheral Vein, Percutaneous Approach (ICD-10-PCS; 2020-11-24)
PROC: 30233R1 Transfusion of Nonautologous Platelets into Peripheral Vein, Percutaneous Approach (ICD-10-PCS; 2020-11-24)
PROC: 5A1D70Z Performance of Urinary Filtration, Intermittent, Less than 6 Hours Per Day (ICD-10-PCS; 2020-11-24)
PROC: 07DR3ZX Extraction of Iliac Bone Marrow, Percutaneous Approach, Diagnostic (ICD-10-PCS; 2020-12-05)
DX: A41.59 Other Gram-negative sepsis (principal); J96.01 Acute respiratory failure with hypoxia; J69.0 Pneumonitis due to inhalation of food and vomit; N17.0 Acute kidney failure with tubular necrosis; E43 Unspecified severe protein-calorie malnutrition; R65.21 Severe sepsis with septic shock; G92.8 Other toxic encephalopathy; E87.2 Acidosis; J98.11 Atelectasis; D61.818 Other pancytopenia; J90 Pleural effusion, not elsewhere classified; D68.9 Coagulation defect, unspecified; N12 Tubulo-interstitial nephritis, not specified as acute or chronic; N20.1 Calculus of ureter; C91.00 Acute lymphoblastic leukemia not having achieved remission; D50.9 Iron deficiency anemia, unspecified; Z20.822 Contact with and (suspected) exposure to COVID-19; E11.65 Type 2 diabetes mellitus with hyperglycemia; E11.22 Type 2 diabetes mellitus with diabetic chronic kidney disease; E88.09 Other disorders of plasma-protein metabolism, not elsewhere classified; E83.39 Other disorders of phosphorus metabolism; Z68.24 Body mass index [BMI] 24.0-24.9, adult; N18.9 Chronic kidney disease, unspecified; R16.2 Hepatomegaly with splenomegaly, not elsewhere classified; D64.9 Anemia, unspecified; D69.59 Other secondary thrombocytopenia; E87.6 Hypokalemia; E80.6 Other disorders of bilirubin metabolism; B96.1 Klebsiella pneumoniae [K. pneumoniae] as the cause of diseases classified elsewhere
CPT/HCPCS: 36415; 36569; 70450-TC; 71045-TC; 71260-TC; 76705-TC; 76770-TC; 80048-TC; 80053-TC; 80061-TC; 80074; 80076-TC; 80202-TC; 81001; 82140-TC; 82272-TC; 82378; 82570-TC; 82728-TC; 82784; 82962-TC; 83010; 83540-TC; 83605-TC; 83615-TC; 83735-TC; 83970; 84100-TC; 84153-TC; 84154-TC; 84155; 84165; 84300-TC; 84443-TC; 84484-TC; 85025-TC; 85045-TC; 85396; 85610-TC; 85730-TC; 86225; 86235; 86334; 86431-TC; 86850-TC; 86880-TC; 87040-TC; 87081-TC; 87086-TC; 87186-TC; 87806; 90935-TC; 92526; 92611-TC; 93307-TC; 94799-TC; 97112-TC; 97116-TC; 97530-TC; A4216; A6403; C1750; C1751; C9113; G0378; J0696; J0885; J1200; J1447; J1815; J2185; J3370; J3430; J3475; J3480; J3490; J7030; J7040; J7050; J7060; J7120; P9016; P9034; Q9967; U0003